=== PATIENT | female | born 1985 | race Caucasian/White ===

== ENCOUNTER → 2016-07-26 | Outpatient (CLI) | payer OTHER ==
[~2016-07-26] MED LIST: IBUP-1050 PO
[2016-07-26 15:12] LABS: BASO % 0.1 %; BASO ABS # 0.01 K/uL (0-0.2); COMPLETE YES; EOS % 0.2 %; HEMATOCRIT 38.2 % (37-47); IG% 0.2 %; LYMPH % 27.4 %; LYMPH ABS # 2.37 K/uL (1.2-3.4); MEAN CELL VOLUME 89.5 fL (80-100); MEAN CORPUSCULAR HEMOGLOBIN 32.1 pg (25-34); MEAN CORPUSCULAR HGB CONC 35.9 g/dl (32-36); MEAN PLATELET VOLUME 9.2 fL (7.4-10.4); MONO % 6.3 %; NEUT % 65.8 %; PLATELET COUNT 232 K/uL (130-400); RED BLOOD COUNT 4.27 M/uL (4.2-5.4); WHITE BLOOD COUNT 8.64 K/uL (4.8-10.8)
== END | disposition home or self-care (01) ==
LOC: C.LAB1850 14:01
PROVIDERS: ATTEND Obstetrics & Gynecology
DX: O09.299 Supervision of pregnancy with other poor reproductive or obstetric history, unspecified trimester (principal)

== ENCOUNTER → 2016-08-25 | Outpatient (CLI) | payer OTHER ==
[2016-08-25 16:45] LABS: GTGD 50 Grams
[2016-08-27 14:49] LABS: AFP CONCENTRATION 42.1 NG/ML; AFPTS GESTATIONAL AGE 15.9 WEEKS; AFPTS INSULIN DEP DIABETIC? NO; AFPTS MATERNAL WT 146 LBS; ALPHA-FETOPROTEIN RACE CAUCASIAN=W; HISTORY OF NTD NO; REPEAT SAMPLE? NO
== END | disposition home or self-care (01) ==
LOC: C.LAB1850 15:09
PROVIDERS: ATTEND Obstetrics & Gynecology
DX: O09.292 Supervision of pregnancy with other poor reproductive or obstetric history, second trimester (principal)

== ENCOUNTER → 2016-11-18 | Outpatient (CLI) | payer OTHER ==
[2016-11-18 18:04] LABS: GTGD 50 Grams
== END | disposition home or self-care (01) ==
LOC: C.LAB1850 15:57
PROVIDERS: ATTEND Obstetrics & Gynecology
DX: O09.293 Supervision of pregnancy with other poor reproductive or obstetric history, third trimester (principal); Z3A.00 Weeks of gestation of pregnancy not specified

== ENCOUNTER → 2016-12-16 | Outpatient (CLI) | payer OTHER ==
[2016-12-16 16:54] LABS: POTASSIUM 4.3 mmol/L (3.5-5.1)
[2016-12-16 17:10] LABS: THYROID STIMULATING HORMONE 1.55 uIu/ml (0.300-4.500)
== END | disposition home or self-care (01) ==
LOC: C.LAB1850 15:33
PROVIDERS: ATTEND Obstetrics & Gynecology
DX: Z87.898 Personal history of other specified conditions (principal)

== ENCOUNTER → 2017-01-13 | Outpatient (CLI) | payer OTHER | END | disposition home or self-care (01) | LOC: C.LABSPEC 13:50 | PROVIDERS: ATTEND Obstetrics & Gynecology | DX: O09.293 Supervision of pregnancy with other poor reproductive or obstetric history, third trimester (principal) ==

== ENCOUNTER → 2017-01-14 | Outpatient (CLI) | payer OTHER ==
[2017-01-14 19:15] LABS: PATIENT HEIGHT 170.2 cm
[2017-01-14 21:25] LABS: BASO % 0.3 %; BASO ABS # 0.03 K/uL (0-0.2); COMPLETE YES; EOS % 0.4 %; HEMATOCRIT 35.5 % (37-47); IG% 0.2 %; LYMPH % 32.9 %; LYMPH ABS # 3.05 K/uL (1.2-3.4); MEAN CELL VOLUME 90.8 fL (80-100); MEAN CORPUSCULAR HEMOGLOBIN 30.9 pg (25-34); MEAN CORPUSCULAR HGB CONC 34.1 g/dl (32-36); MEAN PLATELET VOLUME 10.1 fL (7.4-10.4); MONO % 9.5 %; NEUT % 56.7 %; PLATELET COUNT 197 K/uL (130-400); RED BLOOD COUNT 3.91 M/uL (4.2-5.4); WHITE BLOOD COUNT 9.28 K/uL (4.8-10.8)
[2017-01-14 21:45] LABS: ALKALINE PHOSPHATASE 112 U/L (45-117); ALT/SGPT 19 U/L (12-78); AST/SGOT 23 U/L (15-37); URIC ACID 6.7 mg/dl (2.6-7.2)
[2017-01-14 23:58] LABS: URINE TOTAL PROTEIN 90.6 mg/dl (0-11.9)
[2017-01-15 00:42] LABS: CREATININE 0.77 mg/dl (0.6-1.2)
== END | disposition home or self-care (01) ==
LOC: C.LAB 19:00
PROVIDERS: ATTEND Obstetrics & Gynecology
DX: O12.10 Gestational proteinuria, unspecified trimester (principal)

== ENCOUNTER 2017-01-19 12:10 | Inpatient (IN) | payer OTHER ==
[~2017-01-19] VITALS: Ht 170.2 cm; Wt 82.5 kg
[2017-01-19 12:53] LABS: BASO % 0.3 %; BASO ABS # 0.02 K/uL (0-0.2); EOS % 0.4 %; HEMATOCRIT 36.1 % (37-47); IG% 0.4 %; LYMPH % 31.3 %; LYMPH ABS # 2.45 K/uL (1.2-3.4); MEAN CELL VOLUME 90.5 fL (80-100); MEAN CORPUSCULAR HEMOGLOBIN 31.6 pg (25-34); MEAN PLATELET VOLUME 9.8 fL (7.4-10.4); MONO % 8.3 %; NEUT % 59.3 %; PLATELET COUNT 181 K/uL (130-400); RED BLOOD COUNT 3.99 M/uL (4.2-5.4); WHITE BLOOD COUNT 7.83 K/uL (4.8-10.8)
[2017-01-19 13:04] LABS: COMPLETE YES; MEAN CORPUSCULAR HGB CONC 34.9 g/dl (32-36)
[2017-01-19 13:14] LABS: INR 0.9 (0.9-1.1); PARTIAL THROMBOPLASTIN RATIO 0.9; PROTHROMBIN TIME (PATIENT) 9.4 SECONDS (9.0-12.0)
[2017-01-19 13:20] LABS: ALKALINE PHOSPHATASE 114 U/L (45-117); ALT/SGPT 18 U/L (12-78); AST/SGOT 23 U/L (15-37); CREATININE 0.83 mg/dl (0.60-1.20); URIC ACID 7.2 mg/dl (2.6-7.2)
[2017-01-19 13:56] VITALS: Ht 170.2 cm; Wt 82.5 kg
--- NOTE | 2017-01-19 19:17 | Medical Student: [facility] ---
Med Student History & Physical Date of Service Jan 19, 2017. Chief Complaint Elevated Bloodpressure History of Present Illness Source: patient Barbara is a 31 year old with an EDC of 02/10/17 by LMP of 05/06/2016 who presents today at 36+6 wks GA due to preeclampsia. At 36+4 wks GA 1.8 g protein was discovered on 24-hour urine collection. At her office visit this morning, blood pressures were 170/110 and 176/94 and she was therefore sent to L&D for further evaluation. She received a Lala bulb here and will be induced tomorrow morning at 0500. This has also been complicated by hyperemesis of ( controlled with Zofran) and neurocardiogenic syncope. Today, she reports some vaginal bleeding from her office visit earlier but no leakage of fluids. She reports contractions and movement. 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 She has a history of irregular cycles with painful and heavy menses. For these reasons, she began on OCPs at the age of 16. In 2012, pt wished to conceive and discontinued OCP therapy. She subsequently experienced oligomenorrhea until restarting OCPs. Polycystic ovaries have been visualized on ultrasound. Patient has had two prior abnormal Pap smears. The first abnormal Pap had a subsequently negative colposcopy. In October 2014, pt had an LGSIL Pap smear. Colposcopy revealed NICOLA-I. Pap smear in May 2015 and November 2015 showed ASCUS positive HPV. Past Medical History Reports experiencing chronic constipation but otherwise denies any other chronic medical conditions. Is allergic to doxycycline and penicillin. Has received a diagnosis of PCOS but does not have any history of hirsutism or diabetes. Past Surgical History Morton teeth removal, cyst removal in throat, lymph node removal. Family History Mother has "heart problems," "clogged arteries in her neck," and HTN. No problems reported in the father. She is an only child. No hx of CA in her family. Social History Prior to , would have one drink a day. Did not drink after finding out she was . Never smoker. No hx of illicit drug use. Is engaged to the 's father. 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 Smoking Status: Never Smoker Smokeless Tobacco Use: No Alcohol Use: socially (engaged) Drug Use: none Marital Status: Housing status: lives with significant other Occupational Status: employed Allergies Coded Allergies: Doxycycline (Verified Allergy, Intermediate, HIVES, 03/26/15) Penicillins (Verified Allergy, Intermediate, HIVES, 03/26/15) Review of Systems Constitutional: No fever, No chills, No sweats Eyes: No worsening of vision ENT: No problem reported Respiratory: No cough, No shortness of breath, No dyspnea on exertion, No dyspnea at rest Cardiovascular: No chest pain Abdomen: No pain, No vomiting Genitourinary - Female: No dysuria Physical Exam General Appearance: WD/WN, no apparent distress Head: normocephalic, atraumatic Respiratory/Chest: chest non-tender, lungs clear, normal breath sounds, no respiratory distress Cardiovascular: regular rate, rhythm, no edema, no JVD, no murmur Abdomen / GI: non tender, soft Fundal Height: 45.5 cm. Extremities: normal inspection, no calf tenderness, no pedal edema Skin: normal color, warm/dry Barbara is a well-developed, well-nourished 31 year old female. Auscultation of the heart reveals no murmurs, rubs, or gallops. Lungs are clear to auscultation bilaterally. Abdominal exam reveals a gravid, soft, and nontender uterus. Fundus measures 45.5 cm. +FHTs. Infant is vertex. EFW is 8 lbs. Contractions were noted on palpation. Pelvic exam per Dr. Pearson indicates her cervix measures 1/70/-2. Neuro exam revealed 2/4 DTRs bilaterally with no clonus. Monitoring External Monitor: Baseline heart rate of 120 bpm. Moderate variability. Accels present. Decels absent. Tocodynamometer: Indicates a contraction every 5 minutes apart. Laboratory Results 01/19/17 12:38 Red Blood Count 3.99, Mean Corpuscular Volume 90.5, Mean Corpuscular Hemoglobin 31.6, Mean Corpuscular Hemoglobin Concent 34.9, Mean Platelet Volume 9.8, Neutrophils (%) (Auto) 59.3, Lymphocytes (%) (Auto) 31.3, Monocytes (%) (Auto) 8.3, Eosinophils (%) (Auto) 0.4, Basophils (%) (Auto) 0.3, Neutrophils # (Auto) 4.65, Lymphocytes # (Auto) 2.45, Monocytes # (Auto) 0.65, Eosinophils # (Auto) 0.03, Basophils # (Auto) 0.02 01/19/17 12:38 Test 01/19/17 12:38 White Blood Count 7.83 K/uL (4.8-10.8) Red Blood Count 3.99 M/uL (4.2-5.4) Hemoglobin 12.6 g/dL (12.0-16.0) Hematocrit 36.1 % (37-47) Mean Corpuscular Volume 90.5 fL (80-100) Mean Corpuscular Hemoglobin 31.6 pg (25-34) Mean Corpuscular Hemoglobin Concent 34.9 g/dl (32-36) Platelet Count 181 K/uL (130-400) Mean Platelet Volume 9.8 fL (7.4-10.4) Neutrophils (%) (Auto) 59.3 % Lymphocytes (%) (Auto) 31.3 % Monocytes (%) (Auto) 8.3 % Eosinophils (%) (Auto) 0.4 % Basophils (%) (Auto) 0.3 % Neutrophils # (Auto) 4.65 K/uL (1.4-6.5) Lymphocytes # (Auto) 2.45 K/uL (1.2-3.4) Monocytes # (Auto) 0.65 K/uL (0.11-0.59) Eosinophils # (Auto) 0.03 K/uL (0-0.5) Basophils # (Auto) 0.02 K/uL (0-0.2) RDW Standard Deviation 45.5 fL (36.4-46.3) RDW Coefficient of Variation 13.8 % (11.5-14.5) Immature Granulocyte % (Auto) 0.4 % Immature Granulocyte # (Auto) 0.03 K/uL (0.00-0.02) Prothrombin Time 9.4 SECONDS (9.0-12.0) Prothromb Time International Ratio 0.9 (0.9-1.1) Activated Partial Thromboplast Time 24.5 SECONDS (21.0-31.0) Partial Thromboplastin Ratio 0.9 Estimated GFR () 109.7 Estimated GFR (Non- 94.6 Uric Acid 7.2 mg/dl (2.6-7.2) Total Bilirubin 0.3 mg/dl (0.2-1) Direct Bilirubin < 0.1 mg/dl (0-0.2) Aspartate Amino Transf (AST/SGOT) 23 U/L (15-37) Alanine Aminotransferase (ALT/SGPT) 18 U/L (12-78) Alkaline Phosphatase 114 U/L (45-117) Total Protein 5.6 gm/dl (6.4-8.2) Albumin 2.4 gm/dl (3.4-5.0) Assessment and Plan Barbara is a 31 year old female with an EDC of 02/10/17 by LMP of 05/06/16 who presents today at 36+6 wks GA for management of preeclampsia. She received a cervical Lala bulb and will undergo induction via Pitocin at 0500 on January, one day sooner than her scheduled induction. has been complicated by hyperemesis of , neurocardiogenic syncope, and preeclampsia. tracing category I. Monitor Lala bulb. Continue with heart rate monitoring and tocodynamometer.
[2017-01-19] MEDS ORDERED: LACTATED RINGER'S 1000ML 500 ML IV PRN (23:20)
[2017-01-20] MEDS ORDERED: OXYTOCIN 30 UNITS/500ML NSS IV PRN ×2 (05:00→14:15)
[2017-01-20] MEDS: LACTATED RINGER'S 1000ML 1,000 ML IV SCH ×2 (05:51→10:29)
[2017-01-20] MEDS ORDERED: CALCIUM CARBONATE 500 MG CHEWABLE PO PRN (06:45)
[2017-01-20] MEDS ORDERED: BUTORPHANOL TARTRATE 1 MG/ML VIAL ONE (08:58)
[2017-01-20] MEDS ORDERED: BUTORPHANOL TARTRATE 1 MG/ML VIAL IV PRN (09:00)
[2017-01-20] MEDS ORDERED: EpHEDrine SULFATE INJ 50 MG/ML AMP ONE (10:22)
[2017-01-20] MEDS ORDERED: BUPIVACAINE 0.25% 30 ML VIAL ONE (10:22)
[2017-01-20] MEDS ORDERED: FENTANYL CITRATE INJ 50 MCG/1 ML 2 ML VIAL ONE (10:23)
[2017-01-20] MEDS ORDERED: FENTANYL 2MCG/ML ROPIV 1.25MG/ML 100ML BAG EPI ONE (10:23)
[2017-01-20] MEDS ORDERED: LACTATED RINGER'S 1000ML 500 ML IV PRN (11:09)
[2017-01-20] MEDS ORDERED: NALOXONE HCL INJ 1 MG in SODIUM CHLORIDE 0.9% 1000ML 1,000 ML IV PRN ×4 (11:09)
[2017-01-20] MEDS ORDERED: NALBUPHINE HCL INJ 10 MG/ML AMP IV PRN (11:15)
[2017-01-20] MEDS ORDERED: DiphenhydrAMINE HCL 50 MG/ML VIAL IV PRN (11:15)
[2017-01-20] MEDS ORDERED: NALOXONE HCL INJ 0.4 MG/1 ML VIAL/CARP IV PRN (11:15)
[2017-01-20] MEDS ORDERED: FENTANYL 2MCG/ML ROPIV 1.25MG/ML 100ML BAG EPI PRN (11:15)
[2017-01-20] MEDS ORDERED: EpHEDrine SULFATE INJ 50 MG/ML AMP IV PRN (11:15)
[2017-01-20] MEDS ORDERED: PROMETHAZINE HCL INJ 25 MG in SODIUM CHLORIDE 0.9% 50ML 50 ML IV PRN (11:15)
[2017-01-20] MEDS ORDERED: ONDANSETRON INJ 2 MG/ML 2 ML VIAL IV PRN (11:15)
[2017-01-20] MEDS ORDERED: BENZOCAINE 20% AER SPR 82.5 GM CAN EXT PRN (14:15)
[2017-01-20] MEDS ORDERED: ACETAMINOPHEN 325 MG TAB PO PRN (14:15)
[2017-01-20] MEDS ORDERED: ACETAMINOPHEN/CODEINE 300/30MG TAB PO PRN ×2 (14:15)
[2017-01-20] MEDS ORDERED: HYDROCORTISONE ACETATE 25 MG SUPP PR PRN (14:15)
[2017-01-20] MEDS ORDERED: SUPERCREAM 0.870 % 15GM JAR EXT PRN (14:15)
[2017-01-20] MEDS ORDERED: DIPHTHERIA/TETANUS/PERTUSSIS 0.5 ML SYR/VIAL IM. ONE (14:15)
[2017-01-20] MEDS ORDERED: LANOLIN OINT EXT PRN ×2 (14:15)
--- NOTE | 2017-01-20 14:23 | Vaginal Delivery Summary ---
Vaginal Delivery Summary Patient dilated to complete and pushed to deliver a viable male Apgars 8 and 9 via over second-degree perineal laceration. Due to rapid maternal expulsive effort shoulder and body delivered rapidly. Mouth and nose bulb suctioned. Infant vigorous and crying at . Cord clamped at 30 seconds of life. to maternal abdomen and cord doubly clamped and then cut. Placenta delivered spontaneously and intact, 3 vessel cord. Hemostasis achieved with dilute Pitocin and uterine massage. Bladder drained under sterile conditions for 100 cc of clear yellow urine. Laceration repaired in the usual fashion using 3-0 Vicryl. Cervix and sulcus intact. Mother and baby stable in recovery. EBL 300 cc.
--- NOTE | 2017-01-20 14:44 | Anesthesia Procedure Note ---
Anesthesia Epidural Removal Nt Date & Time Jan 20, 2017 at 14:44 Vital Signs Pain Intensity: 3.0 Notes Mental Status: alert / awake / arousable, participated in evaluation Nausea / Vomiting: adequately controlled Pain: adequately controlled Airway Patency, RR, SpO2: stable & adequate BP & HR: stable & adequate Hydration State: stable & adequate Neuraxial Anesthesia: was administered Anesthetic Complications: no major complications apparent, pt satisfied with anesthetic care Epidural: removed without complications, with tip intact
[2017-01-20] MEDS ORDERED: OXYTOCIN INJ 20 UNITS in LACTATED RINGER'S 1000ML 1,000 ML IV SCH (14:45)
--- NOTE | 2017-01-20 14:57 | Medical Student: [facility] ---
Medical Student Delivery Note Barbara is a 31-year-old female who was admitted yesterday at 36+6 weeks gestational age for induction due to preeclampsia. A cervical bulb was placed yesterday and this morning at 0500 she was induced with IV pitocin. She received a combined spinal-epidural for analgesia. Upon progression to full dilation, Barbara began to push through her first contraction. After four pushes, the 's head was delivered and with another push, the shoulders and the rest of the body were rapidly delivered. A viable male was born and placed on Barbara's abdomen. He let out a spontaneous cry. Apgars 8/9. Cord was doubly clamped after 30 seconds and cut. The placenta was delivered with gentle downward traction. A three-vessel cord was visualized. A second degree laceration was visualized and subsequently repaired. 100cc of urine was drained. Hemostasis was achieved with uterine massage and Pitocin. Mother and baby are bonding appropriately.
[2017-01-20] MEDS: IBUPROFEN 600 MG TAB PO PRN ×2 (16:16→21:03)
[2017-01-20 17:15] VITALS: BP 148/93; PULSE 74; TEMP 37.5
[2017-01-20 19:12] VITALS: BP 149/89; PULSE 58; TEMP 37.2
[2017-01-20] MEDS: DOCUSATE SODIUM 100 MG CAP PO SCH (21:03)
[2017-01-20 23:55] VITALS: BP 144/81; PULSE 63; TEMP 37; O2SAT 97
[2017-01-21 04:30] VITALS: BP 144/84; PULSE 58; TEMP 36.9; O2SAT 96
[2017-01-21] MEDS: IBUPROFEN 600 MG TAB PO PRN ×4 (04:48→17:46)
--- NOTE | 2017-01-21 06:15 | Medical Student: [facility] ---
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 Subjective conversation w/ patient Ambulation: ambulating normally Voiding: no voiding problems (irritation with urination ) Passing Gas: Yes Diet Tolerance: Regular Diet Feeding Type: Breast Feeding Pain: 1-2 Notes: Pt was asleep when I entered the room. She reports pain controlled by Motrin. Bleeding has slowed down. She has only passed small clots. Reports her mood as good. Review of Systems Constitutional: No fever, No chills Respiratory: No shortness of breath Cardiac: No chest pain Breast: No problem reported Abdomen: No pain, No nausea, No vomiting, No diarrhea, No constipation Female : + see HPI Objective Vital Signs Date Time Temp Pulse Resp B/P (MAP) Pulse Ox O2 Delivery O2 Flow Rate FiO2 01/21/17 04:30 36.9 58 18 144/84 (104) 96 Room Air 01/20/17 23:55 97 Room Air 01/20/17 23:55 37.0 63 18 144/81 (102) 97 Room Air 01/20/17 19:12 37.2 58 20 149/89 (109) Room Air 01/20/17 17:15 37.5 74 20 148/93 (111) Room Air 01/20/17 17:15 Room Air Physical Exam General Appearance: WELL-APPEARING, WD/WN, NO APPARENT DISTRESS Respiratory/Chest: chest non-tender, lungs clear, normal breath sounds, no respiratory distress Cardiovascular: regular rate, rhythm, no edema, no gallop, no murmur (murmur noted during prior visit; none heard this morning) Abdomen: non tender, soft Fundus: Firm, Relation to Umbilicus (1 cm below the umbilicus) Extremities: normal inspection, no calf tenderness Assessment and Plan Post- Day Number: 1 Continue Routine Care: Barbara is a 31-year-old A1 female who is day 1. This was complicated by hyperemesis, neurocardiogenic syncope, and preeclampsia ( prompting her induction). Blood type O+, rubella immune, GBS negative. Continue routine post-vaginal delivery care. Encourage perineal icing for the first 24 hours. Sitz baths and NSAIDs as needed. Encourage ambulation. Continue . Monitor lochia, mood. Pain control prn.
--- NOTE | 2017-01-21 06:43 | Progress Note ---
Subjective Jan 21, 2017. Subjective conversation w/ patient, physical exam Ambulation: ambulating normally Voiding: no voiding problems Diet Tolerance: Regular Diet Lochia: Small Feeding Type: Breast Feeding Pain: no pain issues Comment: breast pumping due to 's status Objective Vital Signs Date Time Temp Pulse Resp B/P (MAP) Pulse Ox O2 Delivery O2 Flow Rate FiO2 01/21/17 04:30 36.9 58 18 144/84 (104) 96 Room Air 01/20/17 23:55 97 Room Air 01/20/17 23:55 37.0 63 18 144/81 (102) 97 Room Air 01/20/17 19:12 37.2 58 20 149/89 (109) Room Air 01/20/17 17:15 37.5 74 20 148/93 (111) Room Air 01/20/17 17:15 Room Air Physical Exam General Appearance: WELL-APPEARING, WD/WN, NO APPARENT DISTRESS Respiratory/Chest: lungs clear Cardiovascular: regular rate, rhythm Abdomen: non tender, soft Fundus: Firm, Relation to Umbilicus (2 down) Extremities: non-tender Assessment and Plan Post- Day#: 1 Continue Routine Care: stable, routine care. bps noted. denies complaints.
[2017-01-21 08:00] VITALS: BP 137/81; PULSE 69; TEMP 37
[2017-01-21] MEDS: DOCUSATE SODIUM 100 MG CAP PO SCH ×2 (08:26→19:46)
[2017-01-21 12:00] VITALS: BP 141/85; PULSE 58; TEMP 36.7
[2017-01-21 15:30] VITALS: BP_SYST 163; BP_DIAS 92; BP_DIAS 93; TEMP 36.7
[2017-01-21 15:54] VITALS: BP 150/90; PULSE 63; TEMP 36.6
[2017-01-21 19:30] VITALS: BP 159/90
[2017-01-22] VITALS: BP 146/80; PULSE 52; TEMP 36.6; O2SAT 97
--- NOTE | 2017-01-22 06:34 | OB/GYN Progress Note ---
[employer] Progress Note Date of Service Jan 22, 2017. Subjective conversation w/ patient, physical exam, chart review, lab review Ambulation: ambulating normally Voiding: no voiding problems Passing Gas: Yes (no BM yet) Lochia: Small Feeding Type: Breast Feeding Pain: Low abd cramping Review of Systems Constitutional: No fever, No chills Respiratory: No cough, No shortness of breath Cardiac: No chest pain Abdomen: No nausea, No vomiting, No diarrhea Female : No dysuria Objective Vital Signs Date Time Temp Pulse Resp B/P (MAP) Pulse Ox O2 Delivery O2 Flow Rate FiO2 01/22/17 00:00 36.6 52 18 146/80 (102) 97 Room Air 01/22/17 00:00 Room Air 01/21/17 19:30 159/90 (113) 01/21/17 15:54 36.6 63 18 150/90 (110) Room Air 01/21/17 15:30 36.7 20 163/92 (115) Room Air 163/93 (116) 01/21/17 15:30 Room Air 01/21/17 12:00 36.7 58 18 141/85 (103) Room Air 01/21/17 08:00 37.0 69 20 137/81 (99) Room Air 01/21/17 07:45 Room Air Physical Exam General Appearance: WELL-APPEARING, WD/WN, NO APPARENT DISTRESS Respiratory/Chest: lungs clear, normal breath sounds Cardiovascular: regular rate, rhythm, no edema Abdomen: normal bowel sounds, non tender, soft Fundus: Firm, Relation to Umbilicus (approx two down) Extremities: normal range of motion, non-tender, no calf tenderness, + swelling (Minimal (B) distal leg edema) Assessment and Plan Post- Day Number: 2 Continue Routine Care: 31yo s/p IOL, now PPD #2. - Blood type O pos. GBS negative. Rubella immune. - Vital signs reviewed and stable. - Cramping controlled with minimal ibuprofen. - Mild (B) distal leg swelling but no tenderness on calf palpation. Encourage ambulation. - Encourage breast feeding. Pt asking for assistance with the same. - Hemoglobin: 12.6 Bleeding has improved. Continue to monitor clinically. - Continue routine post-vaginal delivery care. - Pt agreed with above plan, all current questions answered. Moshe Claros MD, PGY1 Distribution Spec Tracking Resident Involvement: Resident Care Provided Care Provided: OB Delivery (morning rounds)
[2017-01-22 07:35] VITALS: BP 155/95; PULSE 65; TEMP 36.7; O2SAT 9; O2SAT 98
--- NOTE | 2017-01-22 07:51 | Discharge Instructions ---
Discharge Instructions Date of Service Jan 22, 2017. Admission Reason for Admission: Elevated Bloodpressure Discharge Discharge Diagnosis / Problem: Discharge Goals Goal(s): Routine recovery after delivery Activity Recommendations Activity Limitations: per Instructions/Follow-up section . Instructions / Follow-Up Instructions / Follow-Up ACTIVITY RECOMMENDATIONS: * Gradual return to full activity over the next 2-3 weeks. * No lifting - nothing heavier than baby over the next 2-3 weeks. * Do not engage in vigorous exercise, sexual activity or sports until cleared by your physician. * Do not drive or operate any motorized equipment until cleared by your physician. * You may shower/bathe daily. MEDICATIONS: For discomfort or pain, you may use Acetaminophen (Tylenol), Ibuprofen (Advil), or Naproxen (Aleve) following the package directions. For constipation you may use Colace following the package directions. BREAST CARE: If you are not breast feeding: * Wear a supportive bra 24 hours a day for one to two weeks. * Avoid stimulating your breasts and nipples as much as possible during the first few weeks after delivery. * When taking a shower, have the warm water hit your back, not breasts. * When your breasts feel full, apply ice packs. Usually three to four times a day helps ease the discomfort. * Take a mild pain medication (Tylenol / Motrin) when you are uncomfortable. If breast feeding: * Use breast milk to lubricate nipples. Lansinoh cream may be used for sore nipples. You do not need to remove cream prior to breast feeding. If using a different brand of cream, check the label for directions regarding removal of cream prior to nursing. * Wear a supportive bra. * If having problems with breasts or breast feeding, call a executive talent acquisition consultant or your health care provider. EPISIOTOMY CARE: After delivery, if you have an episiotomy (stitches), the following steps will ease discomfort and aid healing. * For the first 24 hours after delivery, place ice packs next to your episiotomy to help reduce swelling. * After the first 24 hour-period, sitz baths, either portable or in the tub, are suggested. A shower with a shower arm sprayed over the episiotomy may be comforting. * Maira care should be done after each voiding and bowel movement. Squirt warm water from a plastic bottle over the perineum (region of the body between the anus and urinary opening) and pat dry. * Use Dermoplast to ease discomfort. Shake container. [place] directly over the episiotomy. Place a Tucks on a clean sanitary pad next to your episiotomy. SPECIAL CARE INSTRUCTIONS: When you are discharged from the hospital, it is important for you to follow the instructions listed below: * During the first week at home, you should be able to care for yourself and your baby. In addition, the usual light household activities are encouraged. * Limit your activities to the way you feel. Do not try to clean the house or move furniture. Be sensible. * If you actively engage in sports and have done so up until the time of your delivery, you may resume these activities as soon as you feel able. This may take up to one month or even longer. Use good judgment. * Continue to take your vitamins for at least six weeks after the of your baby. * Your diet need not be limited unless you were on a special diet before your delivery. Breast-feeding mothers need around 2500 calories per day and at least 64-80 ounces of fluid per day (8 to 10 glasses). * You should eat foods from the four major food groups. Crash diets or fad diets are to be avoided. Eating lean meats, fresh fruits and vegetables, low-fat dairy products, high fiber foods and a regular exercise program, will help you get back to your pre- weight without putting your health at risk. * Constipation is sometimes a problem after delivery. Take a mild laxative as needed. If breast feeding, Milk of Magnesia is acceptable to use. You may use a suppository or Fleets enema if no episiotomy. * A daily shower or tub bath is suggested. Be sure to thoroughly and gently dry the perineum. * A bloody vaginal discharge will usually continue until around four weeks post . A small amount of bleeding may continue for as long as six weeks. Vaginal discharge changes from the bright red bleeding after delivery to pink then brownish and finally yellowish-pink before becoming white and disappearing. * Bleeding may increase with activity. Your first period may come in 4-8 weeks. If you are breast feeding, your period may be delayed even longer. * [place] (sex) can begin whenever both you and your partner feel comfortable and do not have any form of genital infection. It is recommended that you wait at least six weeks for internal and external healing to occur. If you have questions, please talk to your health care practitioner. A condom should be used to prevent infection and . * Foreplay, gentle intercourse and lubrication is very important the first several times to prevent pain. A water-based lubricant such as K-Y jelly or Astroglide may be used. * If you have RH negative blood and your baby is RH positive, you will receive RHOGAM by injection prior to discharge. The nurse will give you a card to keep with you that has the date and place that you received RHOGAM after delivery. * During your care, you had a Rubella screen done to check for the presence of rubella antibodies in your blood. If your test was negative, you will receive a Rubella vaccine prior to discharge. This vaccine may cause a fever, soreness at the injection site and flu-like symptoms. If these symptoms persist, notify your health care practitioner. is not advised for one month after a Rubella vaccine. * Verbalizes understanding of car seat law as reviewed with patient nursing. * Car Seat hand-out given and reviewed with patient by nursing. * Shaken baby information reviewed with patient by nursing. Call you doctor if: * Heavy bleeding (saturating several pads an hour) or passing clots the size of your fist. * A fever >101 degrees F (38.3 degrees C) on two occasions four hours apart and /or chills. * Unusual pain in the pelvic or vaginal areas. * "Baby Blues" lasting longer than two weeks. If you have any questions or concerns, call your health care practitioner at . FOLLOW UP VISIT: * Please call the office at to schedule a 6 week examination. It is important you keep this appointment. It is important for you to make arrangements for either yearly or twice yearly check-ups thereafter. Current Hospital Diet Patient's current hospital diet: Regular OB Diet Discharge Diet Recommended Diet: Regular OB Diet Pending Studies Studies pending at discharge: no Medical Emergencies . Who to Call and When: Medical Emergencies: If at any time you feel your situation is an emergency, please call 911 immediately. . Non-Emergent Contact Non-Emergency issues call your: Shoe Stock Associate . . "Provider Documentation" section prepared by Jimenez Valdez. . VTE Core Measure Inpt VTE Proph given/why not?: Trini Arcos, AMY's
[2017-01-22] MEDS: DOCUSATE SODIUM 100 MG CAP PO SCH ×2 (08:56→19:42)
[2017-01-22] MEDS: IBUPROFEN 600 MG TAB PO PRN ×3 (10:46→19:43)
[2017-01-22 15:30] VITALS: BP 150/92; PULSE 66; TEMP 36.5
[2017-01-22 17:06] VITALS: BP_DIAS 92; PULSE 66; TEMP 36.5
== END 2017-01-22 20:15 | disposition home or self-care (01) | DRG 775 ==
LOC: C.OPB 12:10 → C.LD 12:12 → C.OPB 13:54 → C.LD 13:54 → C.OBG 01-20 17:29
PROVIDERS: ADMIT Obstetrics & Gynecology; ATTEND Obstetrics & Gynecology
PROC: 10E0XZZ Delivery of Products of Conception, External Approach (ICD-10-PCS; principal; 2017-01-20)
PROC: 0KQM0ZZ Repair Perineum Muscle, Open Approach (ICD-10-PCS; principal; 2017-01-20)
DX: O14.94 Unspecified pre-eclampsia, complicating childbirth (principal); Z37.0 Single live birth; O99.02 Anemia complicating childbirth; D64.9 Anemia, unspecified; O99.52 Diseases of the respiratory system complicating childbirth; J45.909 Unspecified asthma, uncomplicated; O99.214 Obesity complicating childbirth; E66.9 Obesity, unspecified; O12.14 Gestational proteinuria, complicating childbirth; O70.1 Second degree perineal laceration during delivery; Z3A.37 37 weeks gestation of pregnancy; Z68.28 Body mass index [BMI] 28.0-28.9, adult

== ENCOUNTER → 2017-03-03 | Outpatient (CLI) | payer OTHER | END | disposition home or self-care (01) | LOC: C.PAPS 15:46 | PROVIDERS: ATTEND Obstetrics & Gynecology | DX: Z12.4 Encounter for screening for malignant neoplasm of cervix (principal); Z87.42 Personal history of other diseases of the female genital tract ==

== ENCOUNTER 2018-10-16 13:05 | Observation (INO) ==
[2018-10-16] MEDS ORDERED: SODIUM CHLORIDE 0.9% 1000ML 2,000 ML IV ONE (13:28)
[2018-10-16] MEDS ORDERED: ONDANSETRON INJ 2 MG/ML 2 ML VIAL IV STA (13:28)
--- NOTE | 2018-10-16 13:32 | Emergency Department Note ---
History of Present Illness General Chief complaint: Vomiting Stated complaint: HYPEREMESIS Time Seen by Provider: 10/16/18 13:19 History of Present Illness This patient is a 33-year-old female, , the presents to the emergency department from her [employer]ELANCE [employer] DIRECTOR doctor's office for evaluation of currently 9 weeks . She has had ongoing hyperemesis with . She denies any other symptoms such as abdominal pain, cramping, vaginal bleeding, diarrhea or fever. No urinary symptoms. She has not tried anything [id number] for her symptoms. The patient was reportedly here a few days ago for possible admission for similar symptoms. Home Medications Home Medications Medication Instructions Recorded Confirmed Type promethazine 25 mg NE Q4H PRN 10/13/18 10/16/18 History promethazine 25 mg PO Q4H PRN 10/16/18 10/16/18 History Allergies Allergy/AdvReac Type Severity Reaction Status Date / Time doxycycline Allergy Intermediate HIVES Verified 10/16/18 13:49 Penicillins Allergy Intermediate HIVES Verified 10/16/18 13:49 Past Med/Surg History Medical History Lymphangioma, cystic Polycystic ovarian syndrome [place] teeth extracted First trimester Social History Preferred Language: Bangladeshi Communication Ability: Effective Beliefs That Will Affect Care: None marital status: Current Living Situation: Spouse Feels Safe at Home: Yes Smoking Status: Never smoker Hx Alcohol Use: No Hx Substance Use: No Review of Systems A total of 10 systems reviewed and were otherwise negative Physical Exam Vital Signs Vital Signs - 24 hr 10/16/18 13:10 10/16/18 14:21 10/16/18 16:15 Temperature 36.7 C 36.7 C Temperature Source Oral Oral Sepsis Recent Fever Within 48 Hours No Sepsis Action Taken by Nursing No Action Required Pulse Rate 80 79 Pulse Rate [Right Brachial] Pulse Rate [Right] 71 Pulse Rhythm Regular Pulse Rhythm [Right] Regular Pulse Strength Normal Pulse Strength [Right] Normal Respiratory Rate 20 18 18 Respiratory Effort / Characteristics Non-Labored Spontaneous Non-Labored Spontaneous Respiratory Depth Normal Normal Respiratory Pattern Regular Regular Blood Pressure 119/80 115/78 Blood Pressure [Right Arm] 121/70 Blood Pressure Mean 93 Blood Pressure Mean [Right Arm] 87 Blood Pressure Position Sitting Blood Pressure Position [Right Arm] Semi-fowlers Pulse Oximetry 100 99 100 Oxygen Delivery Method Room Air Room Air Room Air 10/16/18 20:45 10/16/18 23:00 10/17/18 03:50 Temperature 36.8 C 36.6 C 36.7 C Temperature Source Oral Oral Oral Sepsis Recent Fever Within 48 Hours Sepsis Action Taken by Nursing Pulse Rate Pulse Rate [Right Brachial] Pulse Rate [Right] 70 66 75 Pulse Rhythm Pulse Rhythm [Right] Regular Pulse Strength Pulse Strength [Right] Normal Respiratory Rate 16 18 16 Respiratory Effort / Characteristics Non-Labored Spontaneous Non-Labored Spontaneous Non-Labored Spontaneous Respiratory Depth Normal Normal Normal Respiratory Pattern Regular Regular Blood Pressure Blood Pressure [Right Arm] 122/68 106/66 100/54 L Blood Pressure Mean Blood Pressure Mean [Right Arm] 86 79 69 Blood Pressure Position Blood Pressure Position [Right Arm] Lying Sitting Pulse Oximetry 99 99 Oxygen Delivery Method Room Air Room Air Room Air 10/17/18 07:45 Temperature 36.8 C Temperature Source Oral Sepsis Recent Fever Within 48 Hours Sepsis Action Taken by Nursing Pulse Rate Pulse Rate [Right Brachial] 71 Pulse Rate [Right] Pulse Rhythm Pulse Rhythm [Right] Pulse Strength Pulse Strength [Right] Respiratory Rate 16 Respiratory Effort / Characteristics Non-Labored Spontaneous Respiratory Depth Normal Respiratory Pattern Regular Blood Pressure Blood Pressure [Right Arm] 101/56 L Blood Pressure Mean Blood Pressure Mean [Right Arm] 71 Blood Pressure Position Blood Pressure Position [Right Arm] Lying Pulse Oximetry 98 Oxygen Delivery Method Room Air Constitutional WD/WN, vitals as above Eyes EOM intact bilaterally ENMT external ear and nose normal, oropharynx normal Neck trachea midline Respiratory normal respiratory effort, lungs clear to auscultation Cardiovascular RRR, no murmur, no edema Gastrointestinal (Abdomen) normal bowel sounds, soft, nontender, no hepatosplenomegaly Musculoskeletal no cyanosis or clubbing, extremities motor strength 5/5 Skin no rashes, warm and dry Neurologic Alert and oriented x3. No focal motor deficits. Psychiatric Acting appropriately Course Patient was seen and examined Vital signs including blood pressure were reviewed medications list was verified with patient Labs were obtained, and a saline lock was established Zofran 4 mg IV and 2 L normal saline were ordered The patient's [employer]ELANCE [employer] DIRECT[employer] physician contacted the charge nurse. The patient is instructed to be discharged and go directly to the hospital to be admitted for further treatment under the F[employer]ELANCE [employer] DIRECTOR service. The patient was in agreement with this plan. Administered Medications Acetaminophen (Tylenol) 650 mg PO Q4H PRN PRN Reason: Headache or Pain Stop: 11/15/18 21:57 Last Admin: 10/16/18 22:21 Dose: 650 mg Documented by: [id number] Dimenhydrinate (Dramamine) 50 mg PO Q4R MELISSA Stop: 11/16/18 08:59 Last Admin: 10/17/18 09:32 Dose: 50 mg Documented by: [id number] Discontinued Medications Sodium Chloride (Nss 1000ml) 2,000 mls @ 999 mls/hr IV .Q2H1M ONE Stop: 10/16/18 15:28 Last Admin: 10/16/18 13:44 Dose: 999 mls/hr Documented by: [id number] Lactated Ringer's (Lr) 1,000 mls @ 999 mls/hr IV .Q1H1M MELISSA Stop: 10/16/18 16:45 Last Infusion: 10/16/18 17:28 Dose: 0 mls/hr Documented by: [id number] Admin: 10/16/18 16:03 Dose: 999 mls/hr Documented by: [id number] Ranitidine HCl 50 mg/ Dextrose 102 mls @ 200 mls/hr IV BID MELISSA Stop: 11/15/18 20:59 Last Infusion: 10/17/18 09:30 Dose: 0 mls/hr Documented by: [id number] Admin: 10/17/18 08:57 Dose: 200 mls/hr Documented by: [id number] Infusion: 10/16/18 21:16 Dose: 200 mls/hr Documented by: [id number] Admin: 10/16/18 20:45 Dose: 200 mls/hr Documented by: [id number] Thiamine HCl 100 mg/ Syringe 10 mls @ 2 mls/min IV NOW STA Stop: 10/16/18 15:30 Last Admin: 10/16/18 16:04 Dose: 2 mls/min Documented by: [id number] Lactated Ringer's (Lr) 1,000 mls @ 250 mls/hr IV .Q4H MELISSA Stop: 11/15/18 17:29 Last Infusion: 10/17/18 09:52 Dose: 0 mls/hr Documented by: [id number] Infusion: 10/17/18 09:30 Dose: 250 mls/hr Documented by: [id number] Infusion: 10/17/18 08:57 Dose: 0 mls/hr Documented by: [id number] Admin: 10/17/18 08:55 Dose: 250 mls/hr Documented by: [id number] Infusion: 10/17/18 08:55 Dose: 0 mls/hr Documented by: [id number] Infusion: 10/17/18 06:44 Dose: 250 mls/hr Documented by: [id number] Admin: 10/17/18 04:56 Dose: 250 mls/hr Documented by: [id number] Infusion: 10/17/18 04:36 Dose: 250 mls/hr Documented by: [id number] Admin: 10/17/18 00:36 Dose: 250 mls/hr Documented by: [id number] Infusion: 10/17/18 00:19 Dose: 250 mls/hr Documented by: [id number] Infusion: 10/16/18 22:40 Dose: 250 mls/hr Documented by: [id number] Infusion: 10/16/18 21:15 Dose: 125 mls/hr Documented by: [id number] Infusion: 10/16/18 20:45 Dose: 0 mls/hr Documented by: [id number] Infusion: 10/16/18 18:36 Dose: 125 mls/hr Documented by: [id number] Admin: 10/16/18 17:28 Dose: 125 mls/hr Documented by: [id number] Metoclopramide HCl (Reglan) 5 mg IV Q8H MELISSA Stop: 11/15/18 14:59 Last Admin: 10/17/18 06:37 Dose: 5 mg Documented by: [id number] Admin: 10/16/18 22:28 Dose: 5 mg Documented by: [id number] Admin: 10/16/18 16:04 Dose: 5 mg Documented by: [id number] Ondansetron HCl (Zofran) 4 mg IV NOW STA Stop: 10/16/18 13:29 Last Admin: 10/16/18 13:44 Dose: 4 mg Documented by: [id number] Ondansetron HCl (Zofran) 4 mg IV Q8H MELISSA Stop: 11/15/18 22:59 Last Admin: 10/17/18 06:37 Dose: 4 mg Documented by: [id number] Admin: 10/16/18 22:28 Dose: 4 mg Documented by: [id number] Medical Decision Making Medical Records Attestation: I reviewed the patient's medical records. Home Medications Current Medication List: was personally reviewed by me Laboratory Data Attestation: I reviewed the patient's lab results. Result diagrams: 10/17/18 06:22 10/17/18 06:22 Lab Results 10/16/18 10/16/18 10/16/18 Range/Units 13:35 13:35 13:35 WBC 8.51 (4.8-10.8) K/uL RBC 4.40 (4.2-5.4) M/uL Hgb 13.7 (12.0-16.0) g/dL Hct 37.6 (37-47) % MCV 85.5 (80-100) fL MCH 31.1 (25-34) pg MCHC 36.4 H (32-36) g/dL RDW Std Deviation 37.3 (36.4-46.3) fL RDW Coeff of Mar 12.1 (11.5-14.5) % Plt Count 204 (130-400) K/uL MPV 9.1 (7.4-10.4) fL Immature Gran % (Auto) 0.2 % Neut % (Auto) 57.1 % Lymph % (Auto) 36.0 % [place] % (Auto) 6.1 % Eos % (Auto) 0.4 % Baso % (Auto) 0.2 % Immature Gran # (Auto) 0.02 (0.00-0.02) K/uL Neut # (Auto) 4.86 (1.4-6.5) K/uL Lymph # (Auto) 3.06 (1.2-3.4) K/uL [place] # (Auto) 0.52 (0.11-0.59) K/uL Eos # (Auto) 0.03 (0-0.5) K/uL Baso # (Auto) 0.02 (0-0.2) K/uL Sodium 135 L (136-145) mmol/L Potassium 4.0 (3.5-5.1) mmol/L Chloride 103 (98-107) mmol/L Carbon Dioxide 27 (21-32) mmol/L Anion Gap 5.0 (3-11) BUN 10 (7-18) mg/dl Creatinine 0.60 (0.6-1.2) mg/dl Est Cr Clr Drug Dosing 126.0 ml/min Est GFR ( Amer) 139.8 Est GFR (Non-Af Amer) 120.6 BUN/Creatinine Ratio 16.4 (10-20) Glucose 110 H (70-99) mg/dl Calcium 9.6 (8.5-10.1) mg/dl Magnesium 1.9 (1.8-2.4) mg/dl Total Bilirubin 0.4 (0.2-1) mg/dl AST 14 L (15-37) U/L ALT 22 (12-78) U/L Alkaline Phosphatase 42 L (45-117) U/L Total Protein 7.3 (6.4-8.2) gm/dl Albumin 3.6 (3.4-5.0) gm/dl Globulin 3.7 (2.5-4.0) gm/dl Albumin/Globulin Ratio 1.0 (0.9-2) Amylase 115 (25-115) U/L Lipase 145 (73-393) U/L Urine Color Urine Appearance (Clear) Urine pH (4.5-7.5) Ur Specific [place] (1.000-1.030) Urine Protein (Negative) Urine Glucose (UA) (Negative) Urine Ketones (Negative) Urine Blood (Negative) Urine Nitrite (Negative) Urine Bilirubin (Negative) Urine Urobilinogen (Negative) Ur Leukocyte Esterase (Negative) Urine WBC (Auto) (0-5) /hpf Urine RBC (Auto) (0-4) /hpf U Hyaline Cast (Auto) (0-5) /lpf U Epithel Cells (Auto) (0-5) /lpf Urine Bacteria (Auto) (Negative) 10/16/18 10/17/18 10/17/18 Range/Units 21:00 06:22 06:22 WBC 6.76 (4.8-10.8) K/uL RBC 3.43 L (4.2-5.4) M/uL Hgb 10.6 L D (12.0-16.0) g/dL Hct 29.2 L (37-47) % MCV 85.1 (80-100) fL MCH 30.9 (25-34) pg MCHC 36.3 H (32-36) g/dL RDW Std Deviation 37.1 (36.4-46.3) fL RDW Coeff of Mar 12.0 (11.5-14.5) % Plt Count 151 (130-400) K/uL MPV 8.9 (7.4-10.4) fL Immature Gran % (Auto) % Neut % (Auto) % Lymph % (Auto) % [place] % (Auto) % Eos % (Auto) % Baso % (Auto) % Immature Gran # (Auto) (0.00-0.02) K/uL Neut # (Auto) (1.4-6.5) K/uL Lymph # (Auto) (1.2-3.4) K/uL [place] # (Auto) (0.11-0.59) K/uL Eos # (Auto) (0-0.5) K/uL Baso # (Auto) (0-0.2) K/uL Sodium 137 (136-145) mmol/L Potassium 3.9 (3.5-5.1) mmol/L Chloride 108 H (98-107) mmol/L Carbon Dioxide 24 (21-32) mmol/L Anion Gap 5.0 (3-11) BUN 6 L (7-18) mg/dl Creatinine 0.47 L (0.6-1.2) mg/dl Est Cr Clr Drug Dosing 160.9 ml/min Est GFR ( Amer) > 150.0 Est GFR (Non-Af Amer) 130.7 BUN/Creatinine Ratio 11.6 (10-20) Glucose 80 (70-99) mg/dl Calcium 8.2 L (8.5-10.1) mg/dl Magnesium (1.8-2.4) mg/dl Total Bilirubin 0.4 (0.2-1) mg/dl AST 12 L (15-37) U/L ALT 17 (12-78) U/L Alkaline Phosphatase 33 L (45-117) U/L Total Protein 5.0 L D (6.4-8.2) gm/dl Albumin 2.5 L (3.4-5.0) gm/dl Globulin 2.5 (2.5-4.0) gm/dl Albumin/Globulin Ratio 1.0 (0.9-2) Amylase (25-115) U/L Lipase (73-393) U/L Urine Color Yellow Urine Appearance Turbid H (Clear) Urine pH 8.0 H (4.5-7.5) Ur Specific [place] 1.020 (1.000-1.030) Urine Protein Negative (Negative) Urine Glucose (UA) Negative (Negative) Urine Ketones Trace H (Negative) Urine Blood Negative (Negative) Urine Nitrite Negative (Negative) Urine Bilirubin Negative (Negative) Urine Urobilinogen Negative (Negative) Ur Leukocyte Esterase Trace H (Negative) Urine WBC (Auto) 1-5 (0-5) /hpf Urine RBC (Auto) 0-4 (0-4) /hpf U Hyaline Cast (Auto) 1-5 (0-5) /lpf U Epithel Cells (Auto) 20-30 H (0-5) /lpf Urine Bacteria (Auto) Negative (Negative) Blood Pressure Blood Pressure Findings: Normal blood pressure MDM Narrative Differential diagnosis: Hyperemesis gravidarum, bowel obstruction, viral GI illness, pancreatitis, choledocholithiasis, cholecystitis, among others This patient is a 33-year-old female that returns to the emergency department with hyperemesis secondary to . On exam, her abdomen was benign. She was not febrile. I do not suspect an infectious etiology. The patient's labs are fairly unremarkable. As noted above, the F[employer]ELANCE ART DIRECTOR service contacted the charge nurse and requested that the patient be discharged to go directly to the hospital to be admitted for further treatment under their service. The patient was in agreement with this plan. Impression & Plan Hyperemesis arising during Discharge Plan Visit Data *Final* Discharge Date/Time: 10/16/18 14:21 Chief Complaint: Vomiting Stated Complaint: HYPEREMESIS ED Provider: Timoteo Holden ED Midlevel Provider: Vivian Miller Discharge Problem: Hyperemesis arising during Patient Disposition: Home - Self-Care Discharge Instructions Interventions: ED Discharge Assessment Last Done: 10/16/18 14:21
[2018-10-16 14:08] LABS: Basophils # (auto) 0.02 K/uL (0-0.2); Basophils % (auto) 0.2 %; Eosinophils # (auto) 0.03 K/uL (0-0.5); Eosinophils % (auto) 0.4 %; Hematocrit (blood only) 37.6 % (37-47); Hemoglobin 13.7 g/dL (12.0-16.0); Immature Granulocytes # (auto) 0.02 K/uL (0.00-0.02); Immature Granulocytes % (auto) 0.2 %; Lymphocytes # (auto) 3.06 K/uL (1.2-3.4); Mean Corpuscular Hgb Conc 36.4 g/dL (32-36); Mean Corpuscular Volume 85.5 fL (80-100); Mean Platelet Volume 9.1 fL (7.4-10.4); Monocytes # (auto) 0.52 K/uL (0.11-0.59); Monocytes % (auto) 6.1 %; Neutrophils # (auto) 4.86 K/uL (1.4-6.5); Neutrophils % (auto) 57.1 %; Platelet Count 204 K/uL (130-400); RDW Coefficient of Variation 12.1 % (11.5-14.5); RDW Standard Deviation 37.3 fL (36.4-46.3); White Blood Count 8.51 K/uL (4.8-10.8)
[2018-10-16 14:12] LABS: Albumin Level 3.6 gm/dl (3.4-5.0); BUN Creatinine Ratio 16.4 (10-20); Calcium 9.6 mg/dl (8.5-10.1); Est GFR (African American) 139.8; Est GFR (Non-African American) 120.6; Magnesium 1.9 mg/dl (1.8-2.4)
[2018-10-16 14:16] LABS: Bilirubin,Total 0.4 mg/dl (0.2-1); Globulin 3.7 gm/dl (2.5-4.0); Total Protein 7.3 gm/dl (6.4-8.2)
[2018-10-16] MEDS ORDERED: PROMETHAZINE HCL 25 MG in SODIUM CHLORIDE 0.9% 50 ML IV PRN (14:44)
[2018-10-16] MEDS ORDERED: ONDANSETRON INJ 2 MG/ML 2 ML VIAL IV PRN (14:44)
[2018-10-16] MEDS ORDERED: ONDANSETRON 4 MG OD TAB PO PRN (14:44)
[2018-10-16] MEDS ORDERED: LACTATED RINGER'S 1,000 ML IV SCH (14:45)
[2018-10-16] MEDS ORDERED: THIAMINE HCL 100 MG in SYRINGE 9 ML IV STA (15:26)
[2018-10-16 15:32] LABS: Amylase 115 U/L (25-115)
--- NOTE | 2018-10-16 15:33 | History & Physical Report ---
Date of Service October 16, 2018 Assessment & Plan (1) Hyperemesis arising during : - suspect etiology from current but did consider other sources of intractable nausea/vomiting such as gastroenteritis (no sick contacts), Hyperthyroidism (workup negative), biliary tract disease (negative amylase, LFTs), pancreatitis (negative lipase), intestinal obstruction (no previous history of surgeries or previous obstruction). She did have similar symptoms from previous - Plan is to maintain hydratio with IVFs, treat with anti-emetics, follow electrolytes and replace as needed - Will give IV fluids with 2L bolus of LR. 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 - She has failed outpatient anti-emetic therapy and has required two ER and two clinic visits within the past week. She has required other ED visits to [place] ED over the previously for same as well. - She did receive Zofran 4mg IV in ED and stated that her nausea had improved. - Will treat with Zofran 4mg IV q8hr scheduled; Reglan 5mg IV TID, Zantac 50mg IV BID. Considered corticoseroids for treatment but will hold off for now to see how Barbara responds to current treatment plan. - Care plan will include monitoring I&O's, daily weights. Further lab workup included Amylase for biliary tract pathology, Lipase for pancreatic pathology, UA to monitor for ketones. Considered checking Thiamine level but is a send out lab and will instead give Thiamine 100mg IV to prevent Wernicke encephalopathy as obvious concern for lack of nutritional intake with intractable nausea and vomiting. Nutrition/front counter attendant was consulted to evaluate if patient might benefit or if current condition warrants Parenteral nutrition. (2) Weight loss: On admission weight noted to be 60.6 kg or 133 lbs. - Previous weight noted in [place] from ER visit on 10/13/18, 3 days ago was 62.5kg, showing at least 1.9kg weight loss. - Review of outpatient clinic weights, 10/13/2018 137.4 lbs; on 10/16/2018 (today) 132 lbs. - Patient notes pre- weight of 142-145lbs which would represent a 10- 15lb weight loss, which is weight patient reports she has lost since pregancy. Patient notes that she is unable to keep any solid food down without vomiting. Again as noted above Patternmaker Wood was consulted. Clear liquid diet is ordered and will advance as tolerated. History of Present Illness Chief Complaint: Nausea and Vomiting Primary Care Provider: Gustabo Palacio MD Barbara Persaud is 33 y/o, , [place] @ 9.3 with EDC of 05/18/2019 via LMP on 08/11/2018 that presents for chief complaint of vomiting. Barbara states symptoms have been present for about 3 weeks requiring several visits to Emergency Department for IV fluids and anti-emetics. Initially she tried Zofran PO and IV. Visits included seeing OB Dr. Palacio in the office on 09/29/18 with treatment plan for Phenergan CA and orally dissolving Reglan. The dissolvable Reglan was unfortunately not covered by insurance and last week she did receive Reglan tabs from PCP. She was seen in [place] ED on 10/12/18 and was treated with 2L IV fluids and IV compazine. She was seen in the OB office acutely on 10/13/18 and was sent to the ER for treatment with IV anti-emetics (IV Phenergan and IV reglan), lab work, and IV fluids. Previous to today's OB visit, she noted about 5-10 pound weight loss from pre- weight of 142-145lbs. At OB visit, she noted to have continued Nausea with vomiting and noted another 5 pound weight loss over the past 2-3 days. She was sent to [facility] ER and had some initial lab work done and then was decided to be admitted to L&D for further evaluation and treatment. She notes that she did receive 500mL of IV fluids in ER and had Zofran 4mg IV that has helped her nausea and vomiting. She notes that she had similar symptoms with previous . She notes that she was only taking Phenergan CA over the weekend. She notes that she is passing gas per rectum but only has had 1 BM in last 5 weeks. She denies sick contact, fever, chills. She notes that she had about 20 episodes of emesis over the past day and has been trying to stay hydrated with sips of fluid. She notes generlized abdominal pain only from vomiting. She denies any fluid/blood/passing tissue from vagina. She had an US in OB office on 10/03/18 that showed viable intrauterine . She notes that she has nausea and vomiting with or without food. Review of lab work shows she had abnormal TSH with normal free T4 on 10/13/18. Lab work in ED today showed slightly hyponatremic value of 135, Glucose 110, and otherwise normal electrolytes. CBC without diff was unremarkable except for slightly elevated MCHC. Urine from 10/13/18 showed 1+ ketones and was otherwise unremarkable. Allergies Allergy/AdvReac Type Severity Reaction Status Date / Time doxycycline Allergy Intermediate HIVES Verified 10/16/18 13:49 Penicillins Allergy Intermediate HIVES Verified 10/16/18 13:49 Home Medications Home Medications Medication Instructions Recorded Confirmed Type promethazine 25 mg CA Q4H PRN 10/13/18 10/16/18 History promethazine 25 mg PO Q4H PRN 10/16/18 10/16/18 History Patient History Medical History Polycystic ovarian syndrome First trimester Social History Feels Safe at Home: Yes Smoking Status: Never smoker OB History at 9.3 gestational age, no history of previous . [employer] History no history of abnormal paps or STDs Review of Systems All systems reviewed & are unremarkable except as noted in HPI & below Physical Exam Vital Signs (Past 24 Hours): Last Vital Signs Temp 36.7 C 10/16/18 13:10 Pulse 79 10/16/18 14:21 Resp 18 10/16/18 14:21 BP 115/78 10/16/18 14:21 Pulse Ox 99 10/16/18 14:21 Constitutional: WD/WN, vitals as above cooperative and comfortable Eyes: + anicteric sclerae and EOM intact bilaterally ENMT: Mouth: oral mucous membranes not dry Neck: normal visual inspection and trachea midline Respiratory: normal respiratory effort, lungs clear to auscultation Cardiovascular: RRR, no murmur, no edema Extremities: normal capillary refill Gastrointestinal (Abdomen): Inspection/Auscultation: normal bowel sounds Percussion/Palpation: abdomen soft; abdomen nontender Musculoskeletal: Head/Neck/Chest: normocephalic and head atraumatic Extremities: extremities normal to inspection Skin: no rashes, warm and dry normal turgor Neurologic: moves all extremities and awake Psychiatric: A+Ox3, euthymic affect Results & Data Laboratory Results Laboratory Results - last 24 hr 10/16/18 10/16/18 10/16/18 13:35 13:35 13:35 WBC 8.51 RBC 4.40 Hgb 13.7 Hct 37.6 MCV 85.5 MCH 31.1 MCHC 36.4 H RDW Std Deviation 37.3 RDW Coeff of Mar 12.1 Plt Count 204 MPV 9.1 Immature Gran % (Auto) 0.2 Neut % (Auto) 57.1 Lymph % (Auto) 36.0 [place] % (Auto) 6.1 Eos % (Auto) 0.4 Baso % (Auto) 0.2 Immature Gran # (Auto) 0.02 Neut # (Auto) 4.86 Lymph # (Auto) 3.06 [place] # (Auto) 0.52 Eos # (Auto) 0.03 Baso # (Auto) 0.02 Sodium 135 L Potassium 4.0 Chloride 103 Carbon Dioxide 27 Anion Gap 5.0 BUN 10 Creatinine 0.60 Est Cr Clr Drug Dosing 126.0 Est GFR ( Amer) 139.8 Est GFR (Non-Af Amer) 120.6 BUN/Creatinine Ratio 16.4 Glucose 110 H Calcium 9.6 Magnesium 1.9 Total Bilirubin 0.4 AST 14 L ALT 22 Alkaline Phosphatase 42 L Total Protein 7.3 Albumin 3.6 Globulin 3.7 Albumin/Globulin Ratio 1.0 Amylase 115 Lipase 145 Code Status & VTE Plan Code Status Full Code Supervising Physician Co-Signing Physician Notes Resident Physician Supervision Note: I interviewed and examined the patient. Discussed with Dr. Olmos and agree with findings and plan as documented in the note. Any exceptions or clarifications are listed here: Patient a with iup at 9 2/7 weeks with hyperemesis gravidarium. Patient has had at least 4 ED visits in the last 2 weeks and 4 clinic visits. Last seen in the ED on Tuesday. Patient notes she continues to keep nothing down at all, describes emesis at least 20 times a day for the last two weeks. Her electrolyte values on tuesday and today are both reasonable without significant abnl. However, she has a documented weight loss by our office scale over the week of 5 pounds. She notes a prepreg weight of 142--145 so at least a 10 pound weight gain. viability documented in the office today. The patient has failed all outpatient attempts at treatment and continues to lose weight. Therefore, she qualifies for admission. Plan as outlined by DR. Olmos. We will closely monitor output and record UOP and emesis. We will get nutrition consult as patient has had no intake for 2 weeks per report and significant weight loss. Documented By: Vivian Avila MD, FACOG
[2018-10-16] MEDS: METOCLOPRAMIDE HCL INJ 5 MG/ML 2 ML VIAL IV SCH ×2 (16:04→22:28)
[2018-10-16] MEDS ORDERED: Nursing to Pharmacy Communication ONE (17:17)
[2018-10-16] MEDS: LACTATED RINGER'S 1,000 ML IV SCH (17:28)
[2018-10-16 21:33] LABS: Appearance Urine Turbid (Clear); Bacteria Urine Automated Negative (Negative); Bilirubin Urine Negative (Negative); Blood Urine Negative (Negative); Color Urine Yellow; Epithelial Cell Urine Auto 20-30 /lpf (0-5); Glucose Urine UA Negative (Negative); Ketones Urine Trace (Negative); Leukocyte Esterase Urine Trace (Negative); Nitrite Urine Negative (Negative); Protein Urine Negative (Negative); RBC Urine Automated 0-4 /hpf (0-4); Urobilinogen Urine Negative (Negative)
[2018-10-16] MEDS: ACETAMINOPHEN 325 MG TAB PO PRN (22:21)
[2018-10-16] MEDS: ONDANSETRON INJ 2 MG/ML 2 ML VIAL IV SCH (22:28)
[2018-10-17] MEDS: LACTATED RINGER'S 1,000 ML IV SCH ×3 (00:36→08:55)
[2018-10-17] MEDS: ONDANSETRON INJ 2 MG/ML 2 ML VIAL IV SCH (06:37)
[2018-10-17] MEDS: METOCLOPRAMIDE HCL INJ 5 MG/ML 2 ML VIAL IV SCH (06:37)
[2018-10-17 07:17] LABS: Hematocrit (blood only) 29.2 % (37-47); Hemoglobin 10.6 g/dL (12.0-16.0); Mean Corpuscular Hgb Conc 36.3 g/dL (32-36); Mean Corpuscular Volume 85.1 fL (80-100); Mean Platelet Volume 8.9 fL (7.4-10.4); Platelet Count 151 K/uL (130-400); RDW Standard Deviation 37.1 fL (36.4-46.3); Red Blood Count 3.43 M/uL (4.2-5.4); White Blood Count 6.76 K/uL (4.8-10.8)
--- NOTE | 2018-10-17 07:17 | Obstetrical Progress Note ---
Date of Service October 17, 2018 Assessment & Plan (1) Hyperemesis arising during : - suspect etiology from current (elevated b-HCG from placenta) but did consider other sources of intractable nausea/vomiting such as gastroenteritis (no sick contacts), Hyperthyroidism (workup negative), biliary tract disease (negative amylase, LFTs), pancreatitis (negative lipase), intestinal obstruction (no previous history of surgeries or previous obstruction). She did have similar symptoms from previous - Plan is to maintain hydration with IVFs, treat with anti-emetics, follow electrolytes and replace as needed - On admission to the floor yesterday she was given, IV fluids with 2L bolus of LR, s/p 500cc of IVF in ER FLOSSER. - She has failed outpatient anti-emetic therapy and has required two ER and two clinic visits within the past week. She has required other ED visits to [facility] ED over the previously for same as well. - She did receive Zofran 4mg IV in ED and stated that her nausea had improved. - Will treat with Zofran 4mg IV q8hr scheduled; Reglan 5mg IV TID, Zantac 50mg IV BID. Considered corticotseroids for treatment but will hold off for now to see how Barbara responds to current treatment plan, she was well controlled overnight with Zofran IV, Reglan IV and Zantac IV. - Care plan will include monitoring I&O's, daily weights. - Repeat labs were ordered for this morning to assess electrolytes if needing repleted, mag level to ensure no signs of hypomagnesemia since on Zofran which prolongs QT and can pre-dispose to Torsades (Mag level was normal yesterday). CMP was added to ensure no elevated LFTs, and creatinine is needed to ensure no elevated levels suggesting MIKAELA from possible pre-renal volume loss. - Plan today is to monitor that patient tolerates PO diet here to ensure she can tolerate diet at home Further lab workup included Amylase for biliary tract pathology, Lipase for pancreatic pathology, UA to monitor for ketones. Considered checking Thiamine level but is a send out lab and instead gave Thiamine 100mg IV to prevent W diazicke encephalopathy as obvious concern for lack of nutritional intake with intractable nausea and vomiting. Nutrition/power lineworker was consulted to evaluate if patient might benefit or if current condition warrants Parenteral/enteral nutrition if continues to have weight loss. Discussed with Silas Pegger yesterday who recommended to follow symptoms with hope that she can tolerate diet to prevent further weight loss. There was no further recommendation for vitamin supplementation in addition to thiamine given yesterday. Barbara did have an US in OB office on 10/03/18 that showed viable intrauterine . (2) Weight loss: On admission weight noted to be 60.6 kg or 133 lbs. - Previous weight noted in [facility] from ER visit on 10/13/18, 3 days ago was 62.5kg, showing at least 1.9kg weight loss. - Review of outpatient clinic weights, 10/13/2018 137.4 lbs; on 10/16/2018 (today) 132 lbs. - Patient notes pre- weight of 142-145lbs which would represent a 10- 15lb weight loss, which is weight patient reports she has lost since . Patient notes that she is unable to keep any solid food down without vomiting at home. Again as noted above Pegger was consulted. Clear liquid diet is ordered and can advance as tolerated. Supervising Physician Co-Signing Physician Notes Resident Physician Supervision Note: I interviewed and examined the patient. Discussed with Dr. Olmos and agree with findings and plan as documented in the note. Any exceptions or clarifications are listed here: Patient had NO episodes of emesis since admission. she tolerated the clear tray last night (broth, pudding, ice cream). The only time she was nauseated was when she was out of bed to go to the bathroom. Plan to see how she does with breakfast try. If does well, would slowly advance diet and change to oral dissolving zofran, po zantac and reglan. Consider dramamine? Could consider a zofran pump if IV seems to be the only way she tolerates the zofran. The tray she had last night is the first oral intake she has had in weeks. Need to stop the cycle of ED visit, home, ED visit home. Documented By: Vivian Avila MD, FACOG Subjective Barbara notes that her nausea has been well controlled during admission with anti- emetics. She notes that she was able to tolerate clear liquid dinner last night without vomiting. She notes that she did not have any episodes of vomiting since admission. Barbara endorses that she did get nauseated with ambulation yesterday but symptoms resolved with returning to bed and resting. Barbara notes that her family members are helping rid her house of triggers such as particular smells that could trigger her nausea. She denies fever, chills, chest pain, shortness of breath. Physical Exam Vital Signs (Past 24 Hours): Last Vital Signs Temp 36.7 C 10/17/18 03:50 Pulse 75 10/17/18 03:50 Resp 16 10/17/18 03:50 BP 100/54 L 10/17/18 03:50 Pulse Ox 99 10/17/18 03:50 Constitutional: WD/WN, vitals as above cooperative and comfortable Eyes: + anicteric sclerae and EOM intact bilaterally ENMT: Mouth: oral mucous membranes not dry Neck: normal visual inspection and trachea midline Respiratory: normal respiratory effort, lungs clear to auscultation Cardiovascular: RRR, no murmur, no edema Extremities: normal capillary refill Gastrointestinal (Abdomen): Inspection/Auscultation: normal bowel sounds Percussion/Palpation: abdomen soft; abdomen nontender Musculoskeletal: Head/Neck/Chest: normocephalic and head atraumatic Extremities: extremities normal to inspection Skin: no rashes, warm and dry normal turgor Neurologic: moves all extremities and awake Psychiatric: A+Ox3, euthymic affect Results & Data Laboratory Results Laboratory Results - last 24 hr 10/16/18 10/16/18 10/16/18 13:35 13:35 13:35 WBC 8.51 RBC 4.40 Hgb 13.7 Hct 37.6 MCV 85.5 MCH 31.1 MCHC 36.4 H RDW Std Deviation 37.3 RDW Coeff of Mar 12.1 Plt Count 204 MPV 9.1 Immature Gran % (Auto) 0.2 Neut % (Auto) 57.1 Lymph % (Auto) 36.0 [place] % (Auto) 6.1 Eos % (Auto) 0.4 Baso % (Auto) 0.2 Immature Gran # (Auto) 0.02 Neut # (Auto) 4.86 Lymph # (Auto) 3.06 [place] # (Auto) 0.52 Eos # (Auto) 0.03 Baso # (Auto) 0.02 Sodium 135 L Potassium 4.0 Chloride 103 Carbon Dioxide 27 Anion Gap 5.0 BUN 10 Creatinine 0.60 Est Cr Clr Drug Dosing 126.0 Est GFR ( Amer) 139.8 Est GFR (Non-Af Amer) 120.6 BUN/Creatinine Ratio 16.4 Glucose 110 H Calcium 9.6 Magnesium 1.9 Total Bilirubin 0.4 AST 14 L ALT 22 Alkaline Phosphatase 42 L Total Protein 7.3 Albumin 3.6 Globulin 3.7 Albumin/Globulin Ratio 1.0 Amylase 115 Lipase 145 Urine Color Urine Appearance Urine pH Ur Specific [place] Urine Protein Urine Glucose (UA) Urine Ketones Urine Blood Urine Nitrite Urine Bilirubin Urine Urobilinogen Ur Leukocyte Esterase Urine WBC (Auto) Urine RBC (Auto) U Hyaline Cast (Auto) U Epithel Cells (Auto) Urine Bacteria (Auto) 10/16/18 21:00 WBC RBC Hgb Hct MCV MCH MCHC RDW Std Deviation RDW Coeff of Mar Plt Count MPV Immature Gran % (Auto) Neut % (Auto) Lymph % (Auto) [place] % (Auto) Eos % (Auto) Baso % (Auto) Immature Gran # (Auto) Neut # (Auto) Lymph # (Auto) [place] # (Auto) Eos # (Auto) Baso # (Auto) Sodium Potassium Chloride Carbon Dioxide Anion Gap BUN Creatinine Est Cr Clr Drug Dosing Est GFR ( Amer) Est GFR (Non-Af Amer) BUN/Creatinine Ratio Glucose Calcium Magnesium Total Bilirubin AST ALT Alkaline Phosphatase Total Protein Albumin Globulin Albumin/Globulin Ratio Amylase Lipase Urine Color Yellow Urine Appearance Turbid H Urine pH 8.0 H Ur Specific [place] 1.020 Urine Protein Negative Urine Glucose (UA) Negative Urine Ketones Trace H Urine Blood Negative Urine Nitrite Negative Urine Bilirubin Negative Urine Urobilinogen Negative Ur Leukocyte Esterase Trace H Urine WBC (Auto) 1-5 Urine RBC (Auto) 0-4 U Hyaline Cast (Auto) 1-5 U Epithel Cells (Auto) 20-30 H Urine Bacteria (Auto) Negative Medications Administered Acetaminophen (Tylenol) 650 mg PO Q4H PRN PRN Reason: Headache or Pain Stop: 11/15/18 21:57 Last Admin: 10/16/18 22:21 Dose: 650 mg Documented by: [id number] Ranitidine HCl 50 mg/ Dextrose 102 mls @ 200 mls/hr IV BID MELISSA Stop: 11/15/18 20:59 Last Admin: 10/16/18 20:45 Dose: 200 mls/hr Documented by: [id number] Lactated Ringer's (Lr) 1,000 mls @ 250 mls/hr IV .Q4H MELISSA Stop: 11/15/18 17:29 Last Infusion: 10/17/18 06:44 Dose: 250 mls/hr Documented by: [id number] Admin: 10/17/18 04:56 Dose: 250 mls/hr Documented by: [id number] Infusion: 10/17/18 04:36 Dose: 250 mls/hr Documented by: [id number] Admin: 10/17/18 00:36 Dose: 250 mls/hr Documented by: [id number] Infusion: 10/17/18 00:19 Dose: 250 mls/hr Documented by: [id number] Infusion: 10/16/18 22:40 Dose: 250 mls/hr Documented by: [id number] Infusion: 10/16/18 21:15 Dose: 125 mls/hr Documented by: [id number] Infusion: 10/16/18 20:45 Dose: 0 mls/hr Documented by: [id number] Infusion: 10/16/18 18:36 Dose: 125 mls/hr Documented by: [id number] Admin: 10/16/18 17:28 Dose: 125 mls/hr Documented by: [id number] Metoclopramide HCl (Reglan) 5 mg IV Q8H MELISSA Stop: 11/15/18 14:59 Last Admin: 10/17/18 06:37 Dose: 5 mg Documented by: [id number] Admin: 10/16/18 22:28 Dose: 5 mg Documented by: [id number] Admin: 10/16/18 16:04 Dose: 5 mg Documented by: [id number] Ondansetron HCl (Zofran) 4 mg IV Q8H MELISSA Stop: 11/15/18 22:59 Last Admin: 10/17/18 06:37 Dose: 4 mg Documented by: [id number] Admin: 10/16/18 22:28 Dose: 4 mg Documented by: [id number]
[2018-10-17 07:25] LABS: Alanine Aminotransferase 17 U/L (12-78); Albumin Level 2.5 gm/dl (3.4-5.0); Alkaline Phosphatase 33 U/L (45-117); Aspartate Aminotransferase 12 U/L (15-37); BUN Creatinine Ratio 11.6 (10-20); Bilirubin,Total 0.4 mg/dl (0.2-1); Blood Urea Nitrogen 6 mg/dl (7-18); Calcium 8.2 mg/dl (8.5-10.1); Carbon Dioxide 24 mmol/L (21-32); Chloride 108 mmol/L (98-107); Creatinine Clr Calc Pharmacy 160.9 ml/min; Est GFR (African American) > 150.0; Est GFR (Non-African American) 130.7; Globulin 2.5 gm/dl (2.5-4.0); Glucose 80 mg/dl (70-99); Potassium 3.9 mmol/L (3.5-5.1); Sodium 137 mmol/L (136-145)
[2018-10-17] MEDS ORDERED: ONDANSETRON 4 MG OD TAB PO PRN (09:34)
[2018-10-17] MEDS ORDERED: ONDANSETRON INJ 2 MG/ML 2 ML VIAL IV PRN (09:39)
[2018-10-17] MEDS: PROMETHAZINE HCL 25 MG TAB PO SCH ×3 (11:50→23:57)
[2018-10-17] MEDS: ACETAMINOPHEN 325 MG TAB PO PRN (13:31)
[2018-10-18] MEDS: PROMETHAZINE HCL 25 MG TAB PO SCH ×2 (05:24→10:38)
--- NOTE | 2018-10-18 08:10 | Obstetrical Progress Note ---
Date of Service October 18, 2018 Assessment & Plan (1) Hyperemesis arising during : - suspect etiology from current (elevated b-HCG from placenta) but did consider other sources of intractable nausea/vomiting such as gastroenteritis (no sick contacts), Hyperthyroidism (workup negative), biliary tract disease (negative amylase, LFTs), pancreatitis (negative lipase), intestinal obstruction (no previous history of surgeries or previous obstruction). She did have similar symptoms from previous - Plan is to maintain hydration with IVFs, treat with anti-emetics, follow electrolytes and replace as needed - On admission to the floor, she was given, IV fluids with 2L bolus of LR, s/p 500cc of IVF in ER CUSTOMER TRAINER. - She has failed outpatient anti-emetic therapy and has required two ER and two clinic visits within the past week. She has required other ED visits to [facility] ED over the previously for same as well. - She did receive Zofran 4mg IV in ED and stated that her nausea had improved. - Initial treatmend plan on admision was with Zofran 4mg IV q8hr scheduled; Reglan 5mg IV TID, Zantac 50mg IV BID. Considered corticotseroids for treatment but will hold off for now to see how Barbara responds to current treatment plan, she was well controlled overnight with Zofran IV, Reglan IV and Zantac IV. - Care plan included monitoring I&O's, daily weights. - Labs were followed to assess electrolytes if needing repleted, mag level to ensure no signs of hypomagnesemia since on Zofran which prolongs QT and can pre- dispose to [place]ors[place] (Mag level was normal yesterday). CMP was ordered to ensure no elevated LFTs, and creatinine is needed to ensure no elevated levels suggesting MIKAELA from possible pre-renal volume loss. Labs were unremarkable, there was dilutional effect on repeat labs after IV fluids here in the hospital - Plan today is to monitor that patient tolerates PO diet this morning with plan for discharge home today. - Plan for discharge medications will be Phenergan 25mg PO q6hr scheduled, Dimenhydrinate 50mg PO q4 scheduled, Zofran 4mg ODT PRN, Zantac 150mg PO BID scheduled Further lab workup included Amylase for biliary tract pathology, Lipase for pancreatic pathology, UA to monitor for ketones. Considered checking Thiamine level but is a send out lab and instead was given Thiamine 100mg IV to prevent Wernicke encephalopathy as obvious concern for lack of nutritional intake with intractable nausea and vomiting. Nutrition/navy airspace officer was consulted to evaluate if patient might benefit or if current condition warrants Parenteral/enteral nutrition if continues to have weight loss. Discussed with Silas Resident In Diagnostic Radiology yesterday who recommended to follow symptoms with hope that she can tolerate diet to prevent further weight loss. There was no further recommendation for vitamin supplementation in addition to thiamine given yesterday. Barbara did have an US in OB office on 10/03/18 that showed viable intrauterine . (2) Weight loss: On admission weight noted to be 60.6 kg or 133 lbs. - [facility] visit on 10/13/18, 3 days ago was 62.5kg, showing at least 1.9kg weight loss. - Review of outpatient clinic weights, 10/13/2018 137.4 lbs; on 10/16/2018 (today) 132 lbs. - Patient notes pre- weight of 142-145lbs which would represent a 10- 15lb weight loss, which is weight patient reports she has lost since . Patient notes that she is unable to keep any solid food down without vomiting at home. Again as noted above Resident In Diagnostic Radiology was consulted. Clear liquid diet is ordered and can advance as tolerated. Supervising Physician Co-Signing Physician Notes Patient seen and agree with the above findings and plan Subjective Barbara states she had no episodes of vomiting overnight or yesterday afternoon/evening. She states she did have some nausea that was relieved with ODT Zofran. She was able to tolerate dinner last night that included grilled cheese and potatoes. She is comfortable being discharged home today but would like to see how she tolerates breakfast this morning. She reports passing gas per rectum but no BM here. She denies chest pain, shortness of breath, fever, chills. Physical Exam Vital Signs (Past 24 Hours): Last Vital Signs Temp 36.6 C 10/18/18 07:56 Pulse 78 10/18/18 07:56 Resp 20 10/18/18 07:56 BP 117/72 10/18/18 07:56 Pulse Ox 98 10/18/18 07:56 Constitutional: WD/WN, vitals as above cooperative and comfortable Eyes: + anicteric sclerae and EOM intact bilaterally ENMT: Mouth: oral mucous membranes not dry Neck: normal visual inspection and trachea midline Respiratory: normal respiratory effort, lungs clear to auscultation Cardiovascular: RRR, no murmur, no edema Extremities: normal capillary refill Gastrointestinal (Abdomen): Inspection/Auscultation: normal bowel sounds Percussion/Palpation: abdomen soft; abdomen nontender Musculoskeletal: Head/Neck/Chest: normocephalic and head atraumatic Extremities: extremities normal to inspection Skin: no rashes, warm and dry normal turgor Neurologic: moves all extremities and awake Psychiatric: A+Ox3, euthymic affect Results & Data Medications Administered Acetaminophen (Tylenol) 650 mg PO Q4H PRN PRN Reason: Headache or Pain Stop: 11/15/18 21:57 Last Admin: 10/17/18 13:31 Dose: 650 mg Documented by: [id number] Admin: 10/16/18 22:21 Dose: 650 mg Documented by: [id number] Dimenhydrinate (Dramamine) 50 mg PO Q4R [facility] Stop: 11/16/18 08:59 Last Admin: 10/18/18 07:40 Dose: 50 mg Documented by: [id number] Admin: 10/18/18 04:03 Dose: 50 mg Documented by: [id number] Admin: 10/17/18 23:57 Dose: 50 mg Documented by: [id number] Admin: 10/17/18 19:39 Dose: 50 mg Documented by: [id number] Admin: 10/17/18 15:50 Dose: 50 mg Documented by: [id number] Admin: 10/17/18 11:50 Dose: 50 mg Documented by: [id number] Admin: 10/17/18 09:32 Dose: 50 mg Documented by: [id number] Ondansetron HCl (Zofran Odt) 4 mg PO Q4H PRN PRN Reason: Nausea And Vomiting Stop: 11/15/18 14:43 Last Admin: 10/17/18 19:38 Dose: 4 mg Documented by: [id number] Promethazine HCl (Phenergan) 25 mg PO Q6H [facility] Stop: 11/16/18 10:59 Last Admin: 10/18/18 05:24 Dose: 25 mg Documented by: [id number] Admin: 10/17/18 23:57 Dose: 25 mg Documented by: [id number] Admin: 10/17/18 16:33 Dose: 25 mg Documented by: [id number] Admin: 10/17/18 11:50 Dose: 25 mg Documented by: [id number] Ranitidine HCl (Zantac) 150 mg PO BID MELISSA Stop: 11/16/18 20:59 Last Admin: 10/17/18 20:48 Dose: 150 mg Documented by: [id number]
--- NOTE | 2018-10-19 22:56 | Discharge Summary ---
ADMIT DIAGNOSES: 1. Intrauterine at 9 weeks. 2. Hyperemesis gravidarum. PROCEDURES: 1. IV fluid hydration. 2. IV antiemetics. 3. Nutrition consult. HISTORY OF PRESENT ILLNESS: Barbara is a 33-year-old 3, para 1-0-1-1, with a gestational age at admission of 9 weeks 3 days with an EDC of 05/18/2019 that presents with nausea, vomiting, dehydration and weight loss. Her symptoms have been present for about the last 3 weeks requiring several admissions to the Emergency Department for IV fluids and antiemetics. She initially tried Zofran p.o. and IV but that did not really work. She had a visit with Dr. Palacio in the office on 09/29/2018 with treatment plan for Phenergan rectally and oral dissolving Reglan. The Reglan was unfortunately not covered by her insurance and so she did not take it and irregularly took the Phenergan. She has been in the Emergency Department twice since that time, once this last Tuesday where she was treated with IV Reglan and IV Phenergan. She was then discharged home. She presented to today's OB visit with a documented 5-pound weight loss from Tuesday to Tuesday. She does note that she thinks her prepregnancy weight was 142-145 pounds, so she has lost at least 10 pounds. She noted at this OB visit, she continued to have nausea and vomiting. She notes that she vomits at least 20 times a day. Therefore, in order to stop the cycle of ER visits, we have decided to admit the patient for observation, nutrition consult and to monitor her intake. She notes that she has had 1 bowel movement in the last 5 weeks. She has no sick contacts. She does note today, the day of admission, she was able to eat a honey bun. From an obstetrical standpoint, she has no vaginal bleeding or cramping. For the rest the patient's history and physical, please see her history and physical. ASSESSMENT: This is a 33-year-old 3, para 1-0-1-1 here with hyperemesis gravidarum with a documented weight loss of at least 5 pounds in the last 3 days. She has failed all attempts at outpatient management and continues to lose weight and therefore, she qualifies for admission. HOSPITAL COURSE: The patient was admitted. She underwent IV Zantac, IV Zofran and IV Reglan. She actually did very well with this regimen and had NO emesis while in the hospital. She had no significant electrolyte abnormalities. Her H and H was stable. Her thyroid has been checked the previous Tuesday and was fine. The patient was able to tolerate p.o., antiemetics, which were Zofran and she was finally able to tolerate a p.o. diet. DISCHARGE MEDICATIONS: Include Phenergan 25 mg p.o. q. 6 hours, dimenhydrinate 50 mg p.o. q. 4 hours both of those scheduled, Zofran 4 mg ODT p.r.n., Zantac 150 mg p.o. b.i.d. scheduled. The patient did note while under hospitalization that she felt well when she was absolutely still but anytime she ambulated or moved, she had increased nausea, therefore the dimenhydrinate for treatment. She was able to tolerate some breakfast and the patient felt ready for discharge home. She was discharged on hospital day #2.
== END 2018-10-18 12:54 | disposition home or self-care (01) ==
LOC: 4S2 13:05 → ED 13:05

== ENCOUNTER 2019-05-01 08:32 | Inpatient (IN) ==
[2019-05-01] MEDS ORDERED: OXYTOCIN 30 UNITS/500 ML BAG IV PRN ×3 (09:19→17:11)
--- NOTE | 2019-05-01 09:37 | History & Physical Report ---
Date of Service May 01, 2019 Assessment & Plan (1) Supervision of normal intrauterine in multigravida: Begin pitocin induction of labor see orders for additional info (2) Mild pre-eclampsia, antepartum: PIH labs ordered BEgin pitocin induction anticipate vaginal History of Present Illness Primary Care Provider: NO PCP Patient is a 33 yo white female EDC 05/18/19 who presents at 37 3/7 weeks for IOL because of pre-eclampsia. She had been delivered at 37 weeks last for pre-eclampsia as well. has otherwise been uncomplicated. No PIH symptoms. GBS (-) Allergies Allergy/AdvReac Type Severity Reaction Status Date / Time doxycycline Allergy Intermediate HIVES Verified 04/30/19 10:43 Penicillins Allergy Intermediate HIVES Verified 04/30/19 10:43 Home Medications Home Medications Medication Instructions Recorded Confirmed Type ondansetron HCl 8 mg tablet PO PRN tab 02/14/19 04/30/19 History pedi multivit no.25-folic acid PO 02/14/19 04/30/19 History Patient History Social History Preferred Language: Liberian Communication Ability: Effective Validation Software Facilitator Required: No Beliefs That Will Affect Care: None marital status: Current Living Situation: Spouse Current Living Situation Comment: spouse and son Feels Safe at Home: Yes Safety Concerns: Feels Safe At This Time Smoking Status: Never smoker Hx Alcohol Use: No Hx Substance Use: No Review of Systems All systems reviewed & are unremarkable except as noted in HPI & below Physical Exam Constitutional: WD/WN, vitals as above Respiratory: normal respiratory effort, lungs clear to auscultation Cardiovascular: RRR, no murmur, no edema Gastrointestinal (Abdomen): normal bowel sounds, soft, nontender, no hepatosplenomegaly Psychiatric: A+Ox3, euthymic affect Genitourinary: OB Exam Abdomen: + vertex and + estimated weight (8-9 pounds) Manual OB Exam: + cervical dilation 4 cm, + cervical effacement 50% and + station (-3) OB Exam Monitor Tracing: + external FHT monitor used, + external uterine monitor used, + category I and + normal FHT variability Results & Data Vital Signs (Past 12 Hours) Vital Signs Temp Pulse Resp BP 05/01/19 09:14 76 144/90 H 05/01/19 08:47 97.9 F 20 05/01/19 08:44 76 141/91 H Code Status & VTE Plan VTE Prophylaxis Plan VTE Prophylaxis will be ordered: No
[2019-05-01 09:51] LABS: Hematocrit (blood only) 35.7 % (37-47); Hemoglobin 12.2 g/dL (12.0-16.0); Mean Corpuscular Hemoglobin 29.8 pg (25-34); Mean Corpuscular Volume 87.3 fL (80-100); Mean Platelet Volume 9.4 fL (7.4-10.4); Platelet Count 198 K/uL (130-400); RDW Coefficient of Variation 14.7 % (11.5-14.5); RDW Standard Deviation 46.6 fL (36.4-46.3); Red Blood Count 4.09 M/uL (4.2-5.4); White Blood Count 9.07 K/uL (4.8-10.8)
[2019-05-01 09:54] LABS: Mean Corpuscular Hgb Conc 34.2 g/dL (32-36)
[2019-05-01] MEDS: LACTATED RINGER'S 1,000 ML IV PRN ×2 (10:05→14:30)
[2019-05-01 10:06] LABS: Creatinine Clr Calc Pharmacy 144.9 ml/min; Est GFR (African American) 137.6; Est GFR (Non-African American) 118.7
[2019-05-01] MEDS ORDERED: fentaNYL 2MCG/ML ROPIV 1.25MG/ML 100 ML BAG EPI ONE (14:05)
[2019-05-01] MEDS ORDERED: BUPIVACAINE 0.25% 30 ML VIAL ONE (14:07)
[2019-05-01] MEDS ORDERED: ePHEDrine sulfate 50 MG/ML AMP ONE (14:07)
[2019-05-01] MEDS ORDERED: fentaNYL citrate 100 MCG/2 ML VIAL ONE (14:09)
[2019-05-01] MEDS ORDERED: ONDANSETRON INJ 2 MG/ML 2 ML VIAL IV PRN (14:44)
[2019-05-01] MEDS ORDERED: NALOXONE HCL 0.4 MG/1 ML VIAL/CARP IV PRN (14:44)
[2019-05-01] MEDS ORDERED: NALOXONE HCL 1 MG in SODIUM CHLORIDE 0.9% 1000ML 1,000 ML IV PRN (14:44)
[2019-05-01] MEDS ORDERED: NALBUPHINE HCL INJ 10 MG/ML AMP IV PRN (14:44)
[2019-05-01] MEDS ORDERED: DiphenhydrAMINE HCL 50 MG/ML VIAL IV PRN (14:44)
[2019-05-01] MEDS ORDERED: ePHEDrine sulfate 50 MG/ML AMP IV PRN (14:44)
[2019-05-01] MEDS ORDERED: fentaNYL 2MCG/ML ROPIV 1.25MG/ML 100 ML BAG EPI PRN (14:44)
--- NOTE | 2019-05-01 14:44 | Anesthesiology Consultation ---
Date of Service May 01, 2019 Assessment & Plan Chart Review Chart Review: Acceptable Risk for Surgery and Patient NOT seen in Pre Admission Testing Consults Requested none ASA ASA2 Proposed Anesthesia Anesthesia Type: MAC Spinal Risk / Benefits Reviewed With: PT / POA / Parent / Guardian, Accepts Plan and Informed Consent Obtained History Height/Weight Height: 5 ft 7 in Weight: 86.636 kg Allergies Allergy/AdvReac Type Severity Reaction Status Date / Time doxycycline Allergy Intermediate HIVES Verified 04/30/19 10:43 Penicillins Allergy Intermediate HIVES Verified 04/30/19 10:43 Medications Home Medications Medication Instructions Recorded Confirmed Last Taken ondansetron HCl 8 mg tablet PO PRN tab 02/14/19 04/30/19 04/27/19 15:00 pedi multivit no.25-folic acid PO 02/14/19 04/30/19 04/30/19 08:00 Active Medications Generic Name Dose Route Start Last Admin Trade Name Freq PRN Reason Stop Dose Admin Lactated Ringer's 1,000 mls @ 125 mls/hr 05/01/19 09:19 05/01/19 14:30 Lr IV 05/03/19 09:18 125 mls/hr .Q8H PRN Administration L&D Protocol Protocol Oxytocin 30 units in 500 mls @ 13 mls/hr 05/01/19 09:23 05/01/19 14:00 Pitocin IV 05/03/19 09:22 0.78 units/hr .Q24H PRN 13 mls/hr Labor Induction/Augmentation Titration Protocol 0.78 UNITS/HR Exercise / Class Metabolic Activity II 4-5 Yardwork/Stairs/Walk up hill Past Anesthesia History No Hx of Anesthesia Complications and No Family Hx of Anesthesia Complications Social History Smoking Status: Never smoker Hx Alcohol Use: No Hx Substance Use: No Review of Systems no chest pain or sob Physical Exam Vital Signs Last Vital Signs Temp 36.7 C 05/01/19 14:21 Pulse 69 05/01/19 14:36 Resp 20 05/01/19 14:21 BP 156/95 H 05/01/19 13:57 Pulse Ox 100 05/01/19 14:36 ENMT Mouth: no TMJ abnormality Thyromental Distance: > or= 3.5 Finger Breadths Mallampati Class: II Neck normal visual inspection Respiratory normal respiratory effort Auscultation: lungs clear to auscultation bilaterally Cardiovascular Rate/Rhythm: regular rate and regular rhythm Musculoskeletal Spine: normal cervical ROM Neurologic moves all extremities Psychiatric Orientation: alert and oriented x 3 Testing Laboratory Results 05/01/19 09:37 05/01/19 09:37
--- NOTE | 2019-05-01 14:47 | Anesthesiology Consultation ---
Date of Service May 01, 2019 Assessment & Plan Chart Review Chart Review: Patient NOT seen in Pre Admission Testing and Acceptable Risk for Labor Epidural Consults Requested none ASA ASA2 Proposed Anesthesia Anesthesia Type: Labor Epidural and CSE Risk / Benefits Reviewed With: PT / POA / Parent / Guardian, Accepts Plan and Informed Consent Obtained History Height/Weight Height: 5 ft 7 in Weight: 86.636 kg Allergies Allergy/AdvReac Type Severity Reaction Status Date / Time doxycycline Allergy Intermediate HIVES Verified 04/30/19 10:43 Penicillins Allergy Intermediate HIVES Verified 04/30/19 10:43 Medications Home Medications Medication Instructions Recorded Confirmed Last Taken ondansetron HCl 8 mg tablet PO PRN tab 02/14/19 04/30/19 04/27/19 15:00 pedi multivit no.25-folic acid PO 02/14/19 04/30/19 04/30/19 08:00 Active Medications Generic Name Dose Route Start Last Admin Trade Name Freq PRN Reason Stop Dose Admin Lactated Ringer's 1,000 mls @ 125 mls/hr 05/01/19 09:19 05/01/19 14:30 Lr IV 05/03/19 09:18 125 mls/hr .Q8H PRN Administration L&D Protocol Protocol Oxytocin 30 units in 500 mls @ 13 mls/hr 05/01/19 09:23 05/01/19 14:00 Pitocin IV 05/03/19 09:22 0.78 units/hr .Q24H PRN 13 mls/hr Labor Induction/Augmentation Titration Protocol 0.78 UNITS/HR NPO Date Last Intake of Fluids: 05/01/19 Time Last Intake of Fluids: 13:30 Date Last Intake of Solids: 05/01/19 Time Last Intake of Solids: 05:30 Past Medical History Medical History Pre-eclampsia Abnormal Pap smear of cervix Dyspareunia, female Dysplasia of cervix NICOLA II First trimester Lymphangioma, cystic Polycystic ovarian syndrome Pelzer teeth extracted Exercise / Class Metabolic Activity II 4-5 Yardwork/Stairs/Walk up hill Past Family History Family History Other Hypertension Past Surgical History Surgical History H/O colposcopy with cervical biopsy History of oral surgery S/P skin biopsy Past Anesthesia History No Hx of Anesthesia Complications and No Family Hx of Anesthesia Complications History of PONV No Hx of PONV and No Hx of Motion Sickness Social History Smoking Status: Never smoker Hx Alcohol Use: No Hx Substance Use: No Review of Systems no chest pain or sob Physical Exam Vital Signs Last Vital Signs Temp 36.7 C 05/01/19 14:21 Pulse 76 05/01/19 14:46 Resp 20 05/01/19 14:21 BP 156/95 H 05/01/19 13:57 Pulse Ox 100 05/01/19 14:46 ENMT Mouth: no TMJ abnormality Thyromental Distance: > or= 3.5 Finger Breadths Mallampati Class: II Neck normal visual inspection Respiratory normal respiratory effort Auscultation: lungs clear to auscultation bilaterally Cardiovascular Rate/Rhythm: regular rate and regular rhythm Musculoskeletal Spine: normal cervical ROM Neurologic moves all extremities Psychiatric Orientation: alert and oriented x 3 Testing Laboratory Results 05/01/19 09:37 05/01/19 09:37
[2019-05-01] MEDS ORDERED: SILVER NITR/POTASSIUM NITRATE APPLICATOR ONE (16:50)
[2019-05-01] MEDS ORDERED: HYDROCORTISONE ACETATE 25 MG SUPP PR PRN (17:11)
[2019-05-01] MEDS ORDERED: SUPERCREAM 0.870% 15 GM JAR EXT PRN (17:11)
[2019-05-01] MEDS ORDERED: ACETAMINOPHEN 325 MG TAB PO PRN (17:11)
[2019-05-01] MEDS ORDERED: bisacodyL 10 MG SUPP PR PRN (17:11)
[2019-05-01] MEDS ORDERED: DIPHTHERIA/TETANUS/PERTUSSIS 0.5 ML SYR/VIAL IM ONE (17:11)
[2019-05-01] MEDS ORDERED: BENZOCAINE 20% AER SPR 82.5 GM CAN EXT PRN (17:11)
--- NOTE | 2019-05-01 17:55 | Delivery Summary ---
DATE OF OPERATION: 05/01/2019 The patient is a 33-year-old white female G3, P1-0-1-1, EDC of 05/18/2019, who presents at 37 and 3/7th weeks for induction of labor because of preeclampsia. She had been delivered at 37 weeks at her prior with preeclampsia as well. Her otherwise has been uncomplicated. She presented to Labor and Delivery for induction. Pitocin augmentation of contractions was begun. Membranes were ruptured for clear fluid. She received effective epidural analgesia. She progressed to full dilation. She had the urge to push and pushed effectively over intact perineum for delivery of a viable male infant. After the head was delivered, the rest of the infant delivered easily and was placed on the mother's abdomen for further attention and drying. There was vigorous crying and the was moving all 4 limbs. After approximately 30 seconds, the cord was clamped and cut. Cord blood was obtained. The placenta was then expressed intact with a 3-vessel cord. A first-degree perineal laceration was repaired with 3-0 chromic in the usual fashion. A 1% lidocaine was used to re-anesthetize the perineal laceration area. A skin tag was also removed from the perineum. The bleeding there was controlled with silver nitrate stick. bleeding was controlled with dilute Pitocin. ESTIMATED BLOOD LOSS: 200 mL. Mother and were doing well after delivery. I attest to the content of the Intraoperative Record and any orders documented therein. Any exceptions are noted below. MTDD
--- NOTE | 2019-05-01 18:53 | Anesthesia Procedure Note ---
Date of Service May 01, 2019 Anesthesia Post Epidural Note Vital Signs Vital Signs: Temp Pulse Resp BP Pulse Ox 36.7 C 71 20 144/80 H 100 05/01/19 16:15 05/01/19 18:40 05/01/19 18:25 05/01/19 18:40 05/01/19 16:36 Notes Mental Status: alert / awake / arousable and participated in evaluation Nausea / Vomiting: adequately controlled Pain: adequately controlled Airway Patency, RR, SpO2: stable & adequate BP & HR: stable & adequate Hydration State: stable & adequate Neuraxial Anesthesia: was administered and sensory block is resolving Anesthetic Complications: no major complications apparent and Pt Satisfied with anesthetic care Epidural: Removed without complications and With tip intact
[2019-05-01] MEDS: DOCUSATE SODIUM 100 MG CAP PO SCH (20:03)
[2019-05-01] MEDS: IBUPROFEN 600 MG TAB PO PRN (23:14)
[2019-05-02] MEDS: IBUPROFEN 600 MG TAB PO PRN ×3 (05:30→21:18)
--- NOTE | 2019-05-02 05:52 | Obstetrical Progress Note ---
Date of Service May 02, 2019 Assessment & Plan (1) : 33 yo s/p VD @ 37w4d, complicated by Pre-E Pre-eclampsia (urine cr./pr >.4) - continue to monitor BP and signs while inpatient - BP up to 154/84 yesterday - Plt: 198, Cr.: 0.63, & ALT: 23 & 16 PPD# 1 - GBS negative, Blood Type O+ - Feels well today. Eating well, voiding well, ambulating well. - Pain well controlled with Motrin. - Routine care - After discharge will have followup with Dr. Hernandez. Supervising Physician Co-Signing Physician Notes Resident Physician Supervision Note: I interviewed and examined the patient. Discussed with Dr. Saravia and agree with findings and plan as documented in the note. Any exceptions or clarifications are listed here: [None] Documented By: Cinthya Hernandez MD, FACOG Subjective Doing well today. Pain is well controlled 2/10 with Motrin. is going well. No questions or concerns today. Swelling is improving. Review of Systems Review of Systems: Denies fever, chills, sweats Denies shortness of breath, difficulty breathing, chest pain, palpitations, chest pressure. Denies breast pain. Denies dysuria. Admits headache today Denies RUQ pain Denies vision changes Physical Exam Physical Exam: General: Alert, oriented. No acute distress. Cardiac: Regular rate and rhythm, no murmurs/rubs/gallops. Respiratory: Clear to auscultation anterior and posteriorly, no wheezes/rales/rhonchi. No increased work of breathing. Symmetrical chest rise. No respiratory distress. Abdomen: Soft, nontender, nondistended. Bowel sounds present. Uterus: Uterine fundus firm, palpable at the umbilicus. Lower Extremities: No lower extremity edema or swelling. No deep calf pain. Nicole's negative bilaterally. Results & Data Vital Signs (Past 12 Hours) Vital Signs Temp Pulse Pulse Resp BP BP 05/02/19 05:20 36.8 C 57 L 18 144/93 H 05/01/19 23:15 36.6 C 69 18 128/76 05/01/19 20:15 36.8 C 77 18 139/79 05/01/19 19:10 75 142/84 H 05/01/19 18:55 77 154/84 H 05/01/19 18:53 20 05/01/19 18:40 71 144/80 H 05/01/19 18:25 80 20 148/88 H 05/01/19 18:10 83 149/86 H 05/01/19 17:55 71 20 136/85 PG Care Time/CCT Total # of Minutes Spent Total Time Spent with Patient: Total time spent is greater than 50% in coordination of care (as documented) at patient's floor/unit and/or counseling patient: Resident Activity Tracking Resident Involvement: Resident Care Provided Care Provided: Adult Hospital Medicine
[2019-05-02 06:25] LABS: Hematocrit (blood only) 34.9 % (37-47); Hemoglobin 11.6 g/dL (12.0-16.0); Mean Corpuscular Hemoglobin 29.2 pg (25-34); Mean Corpuscular Hgb Conc 33.2 g/dL (32-36); Mean Corpuscular Volume 87.9 fL (80-100); Mean Platelet Volume 9.7 fL (7.4-10.4); Platelet Count 171 K/uL (130-400); RDW Coefficient of Variation 14.7 % (11.5-14.5); RDW Standard Deviation 47.2 fL (36.4-46.3); Red Blood Count 3.97 M/uL (4.2-5.4); White Blood Count 10.43 K/uL (4.8-10.8)
[2019-05-02] MEDS: PRENATAL VITAMIN 1 TAB PO SCH (07:48)
[2019-05-02] MEDS: DOCUSATE SODIUM 100 MG CAP PO SCH ×2 (07:48→20:39)
[2019-05-02] MEDS ORDERED: bisacodyL 5 MG TABEC PO SCH (20:00)
--- NOTE | 2019-05-03 05:04 | Obstetrical Progress Note ---
Date of Service May 03, 2019 Assessment & Plan (1) : 33 yo s/p VD @ 37w4d, complicated by Pre-E Pre-eclampsia (Dx. w/ urine cr./pr >.4) - continue to monitor BP and signs while inpatient - BP up to 154/84 yesterday - normal: Plt, Cr., & & ALT PPD# 2 - GBS negative, Blood Type O+ - Feels well today. Eating well, voiding well, ambulating well. - Pain well controlled with Motrin. - Routine care - After discharge will have followup with Dr. Hernandez. Supervising Physician Co-Signing Physician Notes Resident Physician Supervision Note: I interviewed and examined the patient. Discussed with Dr. Saravia and agree with findings and plan as documented in the note. Any exceptions or clarifications are listed here: Doing well. BPS stable in 140/80 thoughout PP. No s/s/ of pet. Will d/c home. f/u in one week for bp check. Documented By: Vivian Avila MD, FACOG Subjective Doing well today. Pain is well controlled 2/10 with Motrin. is going well. No questions or concerns today. Review of Systems Review of Systems: Denies fever, chills, sweats Denies shortness of breath, difficulty breathing, chest pain, palpitations, chest pressure. Denies breast pain. Denies dysuria. Denies headache Denies RUQ pain Denies vision changes Physical Exam Physical Exam: General: Alert, oriented. No acute distress. Cardiac: Regular rate and rhythm, no murmurs/rubs/gallops. Respiratory: Clear to auscultation anterior and posteriorly, no wheezes/rales/rhonchi. No increased work of breathing. Symmetrical chest rise. No respiratory distress. Abdomen: Soft, nontender, nondistended. Bowel sounds present. Uterus: Uterine fundus firm, palpable 1 cm below umbilicus. Lower Extremities: No lower extremity edema or swelling. No deep calf pain. Nicole's negative bilaterally. Results & Data Vital Signs (Past 12 Hours) Vital Signs Temp Pulse Resp BP 05/02/19 23:00 36.6 C 66 18 145/82 H 05/02/19 20:00 36.6 C 66 18 145/82 H PG Care Time/CCT Total # of Minutes Spent Total Time Spent with Patient: Total time spent is greater than 50% in coordination of care (as documented) at patient's floor/unit and/or counseling patient: Resident Activity Tracking Resident Involvement: Resident Care Provided Care Provided: OB Delivery
[2019-05-03 06:24] LABS: Hematocrit (blood only) 34.8 % (37-47); Hemoglobin 11.7 g/dL (12.0-16.0)
[2019-05-03] MEDS: DOCUSATE SODIUM 100 MG CAP PO SCH (08:32)
[2019-05-03] MEDS: IBUPROFEN 600 MG TAB PO PRN (08:32)
[2019-05-03] MEDS: PRENATAL VITAMIN 1 TAB PO SCH (08:32)
== END 2019-05-03 10:55 | disposition home or self-care (01) | DRG 807 ==
LOC: 4S1 08:32 → 4S2 19:43